=== PATIENT | male | born 1970 | race Caucasian/White ===

== ENCOUNTER 2018-04-29 16:01 | Outpatient (REF) | payer MEDICARE, MEDICAID, SELFPAY | END 2018-04-29 16:21 | LOC: NCHCN 16:01 | PROVIDERS: PCP Family Medicine; Visit Provider Nurse Practitioner Family | DX: L03.114 Cellulitis of left upper limb (principal) | CPT/HCPCS: 87077; 87070; 87186; 87205 ==

== ENCOUNTER 2018-05-01 09:55 | Outpatient (CLI) | payer MEDICARE, MEDICAID, SELFPAY ==
[2018-05-01 11:13] LABS: Uric Acid 8.2 mg/dL (3.5-7.2)
== END 2018-05-01 10:15 ==
PROVIDERS: PCP Family Medicine; Visit Provider Family Medicine
DX: M1A.0790 Idiopathic chronic gout, unspecified ankle and foot, without tophus (tophi) (principal)
CPT/HCPCS: 36415; 84550

== ENCOUNTER 2018-05-03 17:50 | Emergency (ER) | payer MEDICARE, MEDICAID, SELFPAY ==
[2018-05-03 17:59] VITALS: BP 136/97; PULSE 103; RESP 16; TEMP 36.4; O2SAT 93
--- NOTE | 2018-05-03 18:23 | W.ED.GENAD ---
Discharge Plan Disposition Patient Disposition: HOME Condition: Good Discharge Details Chief Complaint: Cellulitis Clinical Impression: Abscess of forearm, left Primary Care Provider: Marry Nicholson ED Provider: Refugio Ryder Home Meds and New Rx's Prescriptions: Continue fluticasone-salmeterol [Advair Diskus] 1 EACH blister with device 1 ea Inhalation DAILY RF: 0 albuterol sulfate 8.5 GM HFA aerosol inhaler 8.5 gm Inhalation PRN RF: 0 sulfamethoxazole-trimethoprim [Bactrim DS] 800-160 mg Tablet 1 tab PO BID RF: 0 loratadine 10 mg Tablet 10 mg PO DAILY RF: 0 Discharge Instructions Instructions: Abscess (ED) Additional Instructions: if you have fevers or severe worsening of pain return to the emergency department soak the wound three times a day follow up as scheduled with your primary care provider on Saturday Discharge Data Discharge Physician: Refugio Ryder Medical Decision Making pt states that last Saturday he scratched his left forearm while doing work with a yard tool He developed a cellulitis per pt and was placed on bactrim which he has been on Since . He came in [facility] for drainage. It apperas he has an abscess that is drianing. I removed solid pus material and more came out and then probed the wound with landon's and loculations broken up, no need to extend the lesion further. N ofevers and appears well and no crepitus so doubt sepis or nec fasc. will have him continue with po abx, has f/u saturday with pcp. Return precautions given Differential Diagnosis abscess, cellulitis HPI General Mode of arrival: ambulatory. Date/Time Provider Initiated Documentation: 05/03/18 18:03. Limitations to Documentation: no limitations. Information obtained by: patient. History of Present Illness 47 year old M presents to the emergency department with the chief complaint of left arm lesion, described as moderate, with intensity rated at 3. Quality is described as burning, and is localized to the left and upper extremity. Patient reports no radiation. Patient started experiencing this day(s) (3) and it has been constant. No relieving factors improve symptom(s), No exacerbating factors reported . Related Data Home Medications Medication Instructions Recorded Confirmed albuterol sulfate 8.5 gm INHALATION PRN 11/23/13 05/03/18 fluticasone-salmeterol [Advair 1 ea INHALATION DAILY 11/23/13 05/03/18 Diskus] loratadine 10 mg PO DAILY 05/03/18 05/03/18 sulfamethoxazole-trimethoprim 1 tab PO BID 05/03/18 05/03/18 [Bactrim DS] Allergies Allergy/AdvReac Type Severity Reaction Status Date / Time No Known Allergies Allergy Unverified 05/03/18 18:04 General Stated Complaint: Cellulitis JEREMI: 4 Review of Systems Review of Systems All systems reviewed & are unremarkable except as noted in HPI and below Constitutional Denies chills, Denies fever(s) and Denies weakness Eyes Denies loss of vision ENT Denies change in voice Cardiovascular Denies chest pain and Denies dyspnea Respiratory Denies dyspnea Gastrointestinal Denies abdominal pain, Denies nausea and Denies vomiting Genitourinary Denies dysuria Musculoskeletal Denies joint swelling Neurologic Denies loss of vision and Denies weakness Psychiatric Denies depression Endocrine Denies cold intolerance and Denies heat intolerance Allergic/Immunologic Denies urticaria PFSH Social History Smoking/Tobacco Use Status: Former Tobacco Use Exam Const General: no acute distress Orientation: alert HENMT Head: normal to inspection Ears: external ears normal General nose exam: external nose normal Mouth: moist mucous membranes Eyes General: appearance normal, both eyes and all related structures Neck Neck: normal visual inspection Resp Effort & Inspection: normal respiratory effort and able to speak in complete sentences Cardio Rate: regular rate Skin General skin exam: other (on posterior forearm has 2cm open wound with pus draining and 3cm surrounding erythema without crepitus or severe pain) Neuro General: alert and oriented x3 Extrem General: full ROM and normal capillary refill Psych Mental Status: mental status grossly normal Course Vital Signs Temperature 36.4 C L 05/03/18 17:59 Pulse 103 H 05/03/18 17:59 Respiratory Rate 16 05/03/18 17:59 Blood Pressure 136/97 H 05/03/18 17:59 Pulse Oximetry 93 L 05/03/18 17:59 Temperature 36.4 C L 05/03/18 17:59 Pulse 103 H 05/03/18 17:59 Respiratory Rate 16 05/03/18 17:59 Respiratory Effort Non-Labored 05/03/18 18:02 Blood Pressure 136/97 H 05/03/18 17:59 Pulse Oximetry 93 L 05/03/18 17:59 Pain Level 4 05/03/18 17:59
--- NOTE | 2018-05-03 18:27 | ED.GENADUL_ITS ---
Discharge Plan Disposition Patient Disposition: HOME Condition: Good Discharge Details Chief Complaint: Cellulitis Clinical Impression: Abscess of forearm, left Primary Care Provider: Marry Nicholson ED Provider: Refugio Ryder Home Meds and New Rx's Prescriptions: Continue fluticasone-salmeterol [Advair Diskus] 1 EACH blister with device 1 ea Inhalation DAILY RF: 0 albuterol sulfate 8.5 GM HFA aerosol inhaler 8.5 gm Inhalation PRN RF: 0 sulfamethoxazole-trimethoprim [Bactrim DS] 800-160 mg Tablet 1 tab PO BID RF: 0 loratadine 10 mg Tablet 10 mg PO DAILY RF: 0 Discharge Instructions Instructions: Abscess (ED) Additional Instructions: if you have fevers or severe worsening of pain return to the emergency department soak the wound three times a day follow up as scheduled with your primary care provider on Saturday Discharge Data Discharge Physician: Refugio Ryder Medical Decision Making pt states that last Saturday he scratched his left forearm while doing work with a yard tool He developed a cellulitis per pt and was placed on bactrim which he has been on Since . He came in [facility] for [facility]. It apperas he has an abscess that is drianing. I removed solid pus material and more came out and then probed the wound with landon's and loculations broken up, no need to extend the lesion further. N ofevers and appears well and no crepitus so doubt sepis or nec fasc. will have him continue with po abx, has f/u saturday with pcp. Return precautions given Differential Diagnosis abscess, cellulitis HPI General Mode of arrival: ambulatory . Date/Time Provider Initiated Documentation: 05/03/18 18:03 . Limitations to Documentation: no limitations . Information obtained by: patient . History of Present Illness 47 year old M presents to the emergency department with the chief complaint of left arm lesion, described as moderate, with intensity rated at 3. Quality is described as burning, and is localized to the left and upper extremity. Patient reports no radiation. Patient started experiencing this day(s) (3) and it has been constant. No relieving factors improve symptom(s) , No exacerbating factors reported . Related Data Home Medications Medication Instructions Recorded Confirmed albuterol sulfate 8.5 gm INHALATION PRN 11/23/13 05/03/18 fluticasone-salmeterol [Advair 1 ea INHALATION DAILY 11/23/13 05/03/18 Diskus] loratadine 10 mg PO DAILY 05/03/18 05/03/18 sulfamethoxazole-trimethoprim 1 tab PO BID 05/03/18 05/03/18 [Bactrim DS] Allergies Allergy/AdvReac Type Severity Reaction Status Date / Time No Known Allergies Allergy Unverified 05/03/18 18:04 General Stated Complaint: Cellulitis JEREMI: 4 Review of Systems Review of Systems All systems reviewed & are unremarkable except as noted in HPI and below Constitutional Denies chills, Denies fever(s) and Denies weakness Eyes Denies loss of vision ENT Denies change in voice Cardiovascular Denies chest pain and Denies dyspnea Respiratory Denies dyspnea Gastrointestinal Denies abdominal pain, Denies nausea and Denies vomiting Genitourinary Denies dysuria Musculoskeletal Denies joint swelling Neurologic Denies loss of vision and Denies weakness Psychiatric Denies depression Endocrine Denies cold intolerance and Denies heat intolerance Allergic/Immunologic Denies urticaria PFSH Social History Smoking/Tobacco Use Status: Former Tobacco Use Exam Const General: no acute distress Orientation: alert HENMT Head: normal to inspection Ears: external ears normal General nose exam: external nose normal Mouth: moist mucous membranes Eyes General: appearance normal, both eyes and all related structures Neck Neck: normal visual inspection Resp Effort & Inspection: normal respiratory effort and able to speak in complete sentences Cardio Rate: regular rate Skin General skin exam: other (on posterior forearm has 2cm open wound with pus draining and 3cm surrounding erythema without crepitus or severe pain) Neuro General: alert and oriented x3 Extrem General: full ROM and normal capillary refill Psych Mental Status: mental status grossly normal Course Vital Signs Temperature 36.4 C L 05/03/18 17:59 Pulse 103 H 05/03/18 17:59 Respiratory Rate 16 05/03/18 17:59 Blood Pressure 136/97 H 05/03/18 17:59 Pulse Oximetry 93 L 05/03/18 17:59 Temperature 36.4 C L 05/03/18 17:59 Pulse 103 H 05/03/18 17:59 Respiratory Rate 16 05/03/18 17:59 Respiratory Effort Non-Labored 05/03/18 18:02 Blood Pressure 136/97 H 05/03/18 17:59 Pulse Oximetry 93 L 05/03/18 17:59 Pain Level 4 05/03/18 17:59
== END 2018-05-03 18:35 | disposition home or self-care (01) ==
LOC: ER 18:41
PROVIDERS: Emergency Provider Emergency Medicine; PCP Family Medicine
DX: L02.414 Cutaneous abscess of left upper limb (principal); W27.1XXA Contact with garden tool, initial encounter
CPT/HCPCS: 10060

== ENCOUNTER 2019-01-02 06:52 | Outpatient (CLI) | payer MEDICARE, MEDICAID, SELFPAY ==
--- NOTE | 2019-01-02 07:35 | MERGE_ITS ---
*[facility]* *[facility]* [address] [place] [address] Date of study: 01/02/2019 Transthoracic Echocardiography M-mode, complete 2D, complete spectral Doppler, and color Doppler *STUDY CONCLUSIONS* Summary: 1. Left ventricle: The cavity size was normal. Systolic function was normal. The estimated ejection fraction was 55-60%. Diastolic parameters were normal. There was no evidence of elevated ventricular filling pressure by Doppler parameters. 2. Mitral valve: There was mild regurgitation. 3. Right ventricle: The cavity size was normal. Wall thickness was normal. Systolic function was normal. 4. Atrial septum: No defect or patent foramen ovale was identified. 5. Pulmonary arteries: Pulmonary systolic pressure was in the range of 20mm Hg to 30mm Hg. 6. Inferior vena cava: The vessel was normal in size. The respirophasic diameter changes were in the normal range (greater than or equal to 50%), consistent with normal central venous pressure. *PATIENT PRESENTATION* Height: 170.2cm ((67in) ) S/D Pressure: 131 / 84 Weight: 106.6kg ((234.5lb) ) BSA: 2.29m^2 Test start time: 07:30 AM. Test stop time: 08:15 AM. ORDERING Marry Nicholson REFERRING Marry Nicholosn PERFORMING Unknown PERFORMING [facility] [employer]AU[employer] CONTR[employer]ER Devi Dyson *PROCEDURE DATA* Procedure information: This study was interpreted by [facility]. Pertinent images and digital data are archived for permanent storage and are available for subsequent review. No prior study was available for comparison. Study status: Routine. Transthoracic echocardiography. M-mode, complete 2D, complete spectral Doppler, and color Doppler. A Transthoracic Echocardiogram was performed. Scanning was performed from the parasternal, apical, subcostal, and suprasternal notch acoustic windows. Images were obtained using an [employer] SC 2000 cardiac ultrasound machine. Image quality was good. Study completion: The patient tolerated the procedure well. History: PMH: Dyspnea on Exertion. *CARDIAC ANATOMY* Left ventricle: The cavity size was normal. Systolic function was normal. The estimated ejection fraction was 55-60%. The tissue Doppler parameters were normal. Diastolic parameters were normal. There was no evidence of elevated ventricular filling pressure by Doppler parameters. Aortic valve: Trileaflet. Doppler: There was no stenosis. There was no regurgitation. VTI ratio of LVOT to aortic valve: 0.86. Valve area (VTI): 2.5cm^2. Indexed valve area (VTI): 1.1cm^2/m^2. Peak velocity ratio of LVOT to aortic valve: 0.8. Valve area (Vmax): 2.3cm^2. Indexed valve area (Vmax): 1cm^2/m^2. Mean velocity ratio of LVOT to aortic valve: 0.74. Valve area (Vmean): 2.1cm^2. Indexed valve area (Vmean): 0.9cm^2/m^2. Mean gradient (S): 4.1mm Hg. Peak gradient (S): 8.3mm Hg. Aorta: Aortic root: The aortic root was normal in size. Ascending aorta: The ascending aorta was normal in size. Mitral valve: Doppler: There was no evidence for stenosis. There was mild regurgitation. Valve area by pressure half-time: 4.3cm^2. Indexed valve area by pressure half-time: 1.9cm^2/m^2. Peak gradient (D): 2.7mm Hg. Left atrium: The atrium was normal in size. Atrial septum: No defect or patent foramen ovale was identified. Right ventricle: The cavity size was normal. Wall thickness was normal. Systolic function was normal. Pulmonic valve: Doppler: There was no evidence for stenosis. There was no significant regurgitation. Peak gradient (S): 3.4mm Hg. Tricuspid valve: Doppler: There was mild regurgitation. Pulmonary artery: Poorly visualized. Pulmonary systolic pressure was in the range of 20mm Hg to 30mm Hg. Right atrium: The atrium was normal in size. Pericardium: There was no pericardial effusion. Systemic veins: Inferior vena cava: The vessel was normal in size. The respirophasic diameter changes were in the normal range (greater than or equal to 50%), consistent with normal central venous pressure. Measurements Left ventricle Value Reference LV ID, ED, PLAX 5.1 cm 3.5 - 6.0 LV ID, ES, PLAX 3.7 cm 2.1 - 4.0 LV PW thickness, ED, PLAX 1.0 cm LV end-diastolic volume, 1-p A2C 121 ml LV ejection fraction, 1-p A2C 52 % LV end-diastolic volume, 1-p A4C 111 ml LV ejection fraction, 1-p A4C 51 % LV e', lateral 0.132 m/sec LV E/e', lateral 6 LV e', medial 0.088 m/sec LV E/e', medial 9 LV e', average 0.11 m/sec LV E/e', average 8 Ventricular septum Value Reference IVS thickness, ED, PLAX 1.0 cm LVOT Value Reference LVOT ID, A-P 1.9 cm LVOT area 2.9 cm^2 LVOT peak velocity, S 1.14 m/sec LVOT mean velocity, S 0.71 m/sec LVOT VTI, S 22.4 cm LVOT peak gradient, S 5.2 mm Hg LVOT mean gradient, S 2.4 mm Hg Stroke volume (SV), LVOT DP 64 ml Stroke index (SV/bsa), LVOT DP 28 ml/m^2 Aortic valve Value Reference Aortic valve peak velocity, S 1.4 m/sec Aortic valve mean velocity, S 0.95 m/sec Aortic valve VTI, S 26.0 cm Aortic mean gradient, S 4.1 mm Hg Aortic peak gradient, S 8.3 mm Hg VTI ratio, LVOT/AV 0.86 Aortic valve area, VTI 2.5 cm^2 Velocity ratio, peak, LVOT/AV 0.8 Aortic valve area, peak velocity 2.3 cm^2 Velocity ratio, mean, LVOT/AV 0.74 Aortic valve area, mean velocity 2.1 cm^2 Aortic valve area/bsa, mean velocity 0.9 cm^2/m^2 Aorta Value Reference Aortic root ID, ED 3.4 cm Ascending aorta ID, A-P, S 2.9 cm Left atrium Value Reference LA ID, A-P, ES 3.9 cm LA ID/bsa, A-P 1.7 cm/m^2 <=2.2 LA area, ES, A4C 15.9 cm^2 8.8 - 23.4 LA area, ES, A2C 16 cm^2 LA volume/bsa, S 21 ml/m^2 LA volume, ES, 2-p 43 ml LA volume/bsa, ES, 2-p 19 ml/m^2 LA/aortic root ratio 1.16 Mitral valve Value Reference Mitral E-wave peak velocity 0.83 m/sec Mitral A-wave peak velocity 0.66 m/sec Mitral deceleration time 175 ms 150 - 230 Mitral pressure half-time 51 ms Mitral peak gradient, D 2.7 mm Hg Mitral E/A ratio, peak 1.26 Mitral valve area, PHT, DP 4.3 cm^2 Tricuspid valve Value Reference Tricuspid regurg peak velocity 2.3 m/sec Tricuspid peak RV-RA gradient 21.3 mm Hg Right atrium Value Reference RA area, ES, A4C 15.3 cm^2 8.3 - 19.5 Pulmonic valve Value Reference Pulmonic peak gradient, S 3.4 mm Hg Legend: (L) and (H) babs values outside specified reference range. I have personally reviewed the images and have reviewed and edited the reported findings. Electronically signed by Refugio Cruz MD 01/02/2019 19:02
== END 2019-01-02 07:12 ==
PROVIDERS: PCP Family Medicine; Visit Provider Family Medicine
DX: R06.09 Other forms of dyspnea (principal); I34.0 Nonrheumatic mitral (valve) insufficiency
CPT/HCPCS: 93306

== ENCOUNTER 2019-07-24 10:53 | Outpatient (REF) | payer MEDICARE, MEDICAID, SELFPAY ==
[2019-07-24 13:03] LABS: Anion Gap 8.3 mmol/L (3-11); BUN 15 mg/dL (7-18); CO2 30.7 mmol/L (21.0-32.0); Calcium 9.5 mg/dL (8.5-10.1); Chloride 103 mmol/L (98-107); Glucose 72 mg/dL (74-106); Potassium 4.2 mmol/L (3.5-5.1); Sodium 142 mmol/L (136-145)
== END 2019-07-24 11:13 ==
LOC: NCHCN 10:53
PROVIDERS: PCP Family Medicine; Visit Provider Family Medicine
DX: M1A.0790 Idiopathic chronic gout, unspecified ankle and foot, without tophus (tophi) (principal); E66.9 Obesity, unspecified
CPT/HCPCS: 80048; 84550

== ENCOUNTER 2019-10-15 09:13 | Outpatient (CLI) | payer MEDICARE, MEDICAID, SELFPAY ==
[2019-10-18 02:52] LABS: SARS-CoV-2 RNA Undetected (Undetected); SARS-CoV-2 Specimen Source Nasopharynx
== END 2019-10-15 09:33 ==
PROVIDERS: PCP Family Medicine; Visit Provider Family Medicine
DX: R05 Cough (principal)
CPT/HCPCS: U0003

== ENCOUNTER 2019-10-19 12:11 | Outpatient (CLI) | payer MEDICARE, MEDICAID, SELFPAY ==
--- NOTE | 2019-10-19 | DI.RAD_ITS ---
EXAM: XR CHEST 2V PA LATERAL CLINICAL HISTORY: R05 COUGH, PNEUMONIA TECHNIQUE: 2D digital imaging was performed. COMPARISON: No exams were available for comparison FINDINGS: MEDIASTINUM: Normal. HEART: Normal. PULMONARY VASCULATURE: Normal. LUNGS: Clear. PLEURAL SPACE: No pleural effusion or pneumothorax. BONE:Normal. OTHER FINDINGS:Normal. IMPRESSION: No acute pulmonary findings. DATA REPOSITORY: RADIATION DOSE DELIVERED:
== END 2019-10-19 12:31 ==
PROVIDERS: PCP Family Medicine; Visit Provider Nurse Practitioner Family
DX: R05 Cough (principal)
CPT/HCPCS: 71046

== ENCOUNTER 2020-03-03 20:44 | Outpatient (REF) | payer MEDICARE, MEDICAID, SELFPAY | END 2020-03-03 21:04 | LOC: NCHCN 20:44 | PROVIDERS: PCP Family Medicine; Visit Provider Family Medicine | DX: L02.414 Cutaneous abscess of left upper limb (principal) | CPT/HCPCS: 87077; 87070; 87186; 87205 ==

== ENCOUNTER 2020-03-17 01:13 | Outpatient (CLI) | payer MEDICARE, MEDICAID, SELFPAY ==
--- NOTE | 2020-03-17 | DI.RAD_ITS ---
EXAM: XR ANKLE LT COMPLETE CLINICAL HISTORY: GOUT, M10.9 TECHNIQUE: 2D digital imaging was performed. COMPARISON: No exams were available for comparison FINDINGS: BONES: No acute fracture is present. No bony destructive lesion is seen. Small plantar calcaneal spur . JOINTS:The ankle mortise is normally aligned. SOFT TISSUE: Normal. IMPRESSION: Unremarkable radiographs of the left ankle. DATA REPOSITORY: RADIATION DOSE DELIVERED:
== END 2020-03-17 01:33 ==
PROVIDERS: PCP Family Medicine; Visit Provider Family Medicine
DX: M10.9 Gout, unspecified (principal)
CPT/HCPCS: 73610

== ENCOUNTER 2020-10-21 13:06 | Outpatient (REF) | payer MEDICARE, MEDICAID, SELFPAY ==
[2020-10-21 15:08] LABS: Uric Acid 7.4 mg/dL (3.5-7.2)
== END 2020-10-21 13:07 | disposition home or self-care (01) ==
LOC: NCHCN 13:06
PROVIDERS: PCP Family Medicine; Visit Provider Family Medicine
DX: M10.9 Gout, unspecified (principal)
CPT/HCPCS: 84550

== ENCOUNTER 2021-01-21 18:04 | Emergency (ER) | payer MEDICARE, MEDICAID, SELFPAY ==
[2021-01-21 18:14] VITALS: BP 150/98; PULSE 93; RESP 18; TEMP 36.7; O2SAT 96
--- NOTE | 2021-01-21 18:51 | ED.GENADUL_ITS ---
Discharge Plan Disposition Patient Disposition: HOME Condition: Good Discharge Details Clinical Impression: Accidental insect sting Primary Care Provider: Marry Nicholson ED Provider: Amberly Sparks Home Meds and New Rx's Prescriptions: New cephalexin 500 mg capsule 500 mg PO Q6H Qty: 28 RF: 0 Saccharomyces boulardii [Florastor] 250 mg capsule 250 mg PO BID Qty: 14 RF: 0 prednisone 20 mg tablet 40 mg PO BID Qty: 10 RF: 0 diphenhydramine HCl [Benadryl] 25 mg capsule 25 mg PO Q6H PRNQty: 20 RF: 0 No Action albuterol sulfate 8.5 GM HFA aerosol inhaler 8.5 gm Inhalation PRN RF: 0 loratadine 10 mg Tablet 10 mg PO DAILY RF: 0 montelukast 10 mg tablet 10 mg PO DAILY RF: 0 budesonide-formoterol [Symbicort] 160-4.5 mcg/actuation HFA aerosol inhaler 1 inh INHALATION DAILY RF: 0 Medical Decision Making I believe this patient was stung by an insect, however difficult to tell if this is infectious so I did place the patient on 7 days of Keflex in addition to prednisone and Benadryl Given low threshold to return should he have new or worsening complaints in 48- hour recheck recommended He appears well, his blood pressure is elevated he is instructed to have this rechecked by his doctor He is given the first dose of Keflex, Benadryl, and prednisone at time of discharge Return precautions discussed and patient expressed understanding Medical Records Medical records reviewed: Yes I reviewed the patient's medical records. HPI General Mode of arrival: ambulatory . Date/Time Provider Initiated Documentation: 01/21/21 18:19 . Limitations to Documentation: no limitations . Information obtained by: patient . HPI Narrative: This 50-year-old gentleman presents with redness to left wrist. Patient states he reached behind to pull monitor and when he removed his hand she felt a stinging sensation. When he went into the house he noticed some redness. This morning he woke and noticed that the redness had spread. Is been taking ibuprofen for the redness. He denies any difficulty swallowing, chest pain, shortness of breath. He denies any fever or chills. He denies any history of anaphylaxis. He has not attempted Benadryl. He does state he had a cellulitis to his right lower extremity history of the Keflex over a month ago. Related Data Home Medications Medication Instructions Recorded Confirmed albuterol sulfate 8.5 gm INHALATION PRN 11/23/13 01/21/21 loratadine 10 mg PO DAILY 05/03/18 01/21/21 Saccharomyces boulardii [Florastor] 250 mg PO BID #14 cap 01/21/21 budesonide-formoterol [Symbicort] 1 inh INHALATION DAILY 01/21/21 01/21/21 cephalexin 500 mg PO Q6H #28 cap 01/21/21 diphenhydramine HCl [Benadryl] 25 mg PO Q6H PRN #20 cap 01/21/21 montelukast 10 mg PO DAILY 01/21/21 01/21/21 prednisone 40 mg PO BID #10 tab 01/21/21 Previous Rx's Medication Instructions Recorded Saccharomyces boulardii [Florastor] 250 mg PO BID #14 cap 01/21/21 cephalexin 500 mg PO Q6H #28 cap 01/21/21 diphenhydramine HCl [Benadryl] 25 mg PO Q6H PRN #20 cap 01/21/21 prednisone 40 mg PO BID #10 tab 01/21/21 Allergies Allergy/AdvReac Type Severity Reaction Status Date / Time No Known Allergies Allergy Unverified 05/03/18 18:04 General Stated Complaint: Cellulitis JEREMI: 3 Review of Systems All systems reviewed & are unremarkable except as noted in HPI and below PFSH Social History Smoking/Tobacco Use Status: Former Tobacco Use Smoking risk assessment performed?: Yes Alcohol Intake: never Drug use: Never Do you feel safe at home: Yes Do you feel safe in your relationship?: Yes Exam Const General: cooperative and comfortable Neck Other: No stridor Resp Effort & Inspection: normal respiratory effort Cardio Rate: regular rate Skin Full body images: 1. Erythema noted, central area that is papular and erythematous with vesicles, no crepitus, no induration, no purulent drainage Neuro General: patient alert and patient oriented x3 Course Vital Signs Vital signs: Vital Signs Temperature 36.7 C 01/21/21 18:14 Pulse 93 H 01/21/21 18:14 Respiratory Rate 18 01/21/21 18:14 Blood Pressure 150/98 H 01/21/21 18:14 Pulse Oximetry 96 01/21/21 18:14 Temperature 36.7 C 01/21/21 18:14 Temperature Source Temporal Artery Scan 01/21/21 18:14 Pulse 93 H 01/21/21 18:14 Respiratory Rate 18 01/21/21 18:14 Respiratory Effort Non-Labored 01/21/21 18:19 Blood Pressure 150/98 H 01/21/21 18:14 Blood Pressure Position Sitting 01/21/21 18:14 Pulse Oximetry 96 01/21/21 18:14 Oxygen Delivery Method Room Air 01/21/21 18:14 Oxygen Flow Rate 0 01/21/21 18:14 Pain Level 5 01/21/21 18:14
[2021-01-21] MEDS: Cephalexin 500 MG CAP PO (19:24)
[2021-01-21] MEDS: predniSONE 20 MG TAB 40 MG PO (19:25)
[2021-01-21] MEDS: diphenhydrAMINE 25 MG CAP PO (19:25)
[2021-01-21 19:28] VITALS: BP 150/98; PULSE 93; RESP 18; O2SAT 96
== END 2021-01-21 19:25 | disposition home or self-care (01) ==
PROVIDERS: Emergency Provider Physician Assistant; PCP Family Medicine
DX: S60.862A Insect bite (nonvenomous) of left wrist, initial encounter (principal); W57.XXXA Bitten or stung by nonvenomous insect and other nonvenomous arthropods, initial encounter
CPT/HCPCS: 99283; J7512

== ENCOUNTER 2021-02-15 20:33 | Outpatient (REF) | payer MEDICARE, MEDICAID, SELFPAY ==
[2021-02-16 12:26] LABS: COVID-19 RT-PCR UVMMC Result Negative (Negative)
== END 2021-02-15 20:34 | disposition home or self-care (01) ==
LOC: NCHCN 20:33
PROVIDERS: PCP Family Medicine; Visit Provider Family Medicine
DX: Z20.822 Contact with and (suspected) exposure to COVID-19 (principal); R05 Cough
CPT/HCPCS: U0003; U0005

== ENCOUNTER 2021-04-19 10:39 | Outpatient (REF) | payer MEDICARE, MEDICAID, SELFPAY | END 2021-04-19 10:40 | disposition home or self-care (01) | LOC: NCHCN 10:39 | PROVIDERS: PCP Family Medicine; Visit Provider Family Medicine | DX: L02.411 Cutaneous abscess of right axilla (principal) | CPT/HCPCS: 87077; 87070; 87186; 87205 ==

== ENCOUNTER → 2021-04-27 12:46 | Outpatient (BNVA) | payer MEDICARE, MEDICAID, SELFPAY | PROVIDERS: PCP Family Medicine; Referring Provider Family Medicine; Visit Provider Physical Therapy Assistant | DX: L02.91 Cutaneous abscess, unspecified (principal); Z22.322 Carrier or suspected carrier of Methicillin resistant Staphylococcus aureus; Z98.890 Other specified postprocedural states | CPT/HCPCS: 99213 ==

== ENCOUNTER 2021-08-30 12:07 | Outpatient (CLI) | payer MEDICARE, MEDICAID, SELFPAY ==
--- NOTE | 2021-08-30 11:00 | DI.RAD_ITS ---
Exam(s) XR KNEE LT 3V AP,LAT,AUSTYN EXAM: XR KNEE LT 3V AP,LAT,AUSTYN CLINICAL HISTORY: left knee pain. TECHNIQUE: 2D digital imaging was performed of the left knee. Three images were obtained. AP, AP t unnel and lateral views were obtained. COMPARISON: No previous for comparison. FINDINGS: BONES: No acute fracture is present. No bony destructive lesion is seen. JOINTS: The knee is normally aligned. No joint effusion is seen. SOFT TISSUE: Normal. IMPRESSION: Normal radiographs of the left knee. DATA REPOSITORY: RADIATION DOSE DELIVERED:
== END 2021-08-30 12:08 | disposition home or self-care (01) ==
LOC: DIORS 12:08
PROVIDERS: PCP Family Medicine; Referring Provider Family Medicine; Visit Provider Physician Assistant
DX: M25.562 Pain in left knee (principal); M23.92 Unspecified internal derangement of left knee
CPT/HCPCS: 73562; 99214

== ENCOUNTER 2021-09-04 19:31 | Outpatient (REF) | payer MEDICARE, MEDICAID, SELFPAY ==
[2021-09-05 10:12] LABS: Cyclic Citrullinated Peptide <2.5 U/mL (<5.0)
[2021-09-05 14:31] LABS: ANA Interpretation Negative (Negative)
== END 2021-09-04 19:32 | disposition home or self-care (01) ==
LOC: NCHCN 19:31
PROVIDERS: PCP Family Medicine; Visit Provider Family Medicine
DX: M25.462 Effusion, left knee (principal)
CPT/HCPCS: 86200; 86038

== ENCOUNTER → 2022-01-08 09:47 | Outpatient (BNVA) | payer MEDICARE, MEDICAID, SELFPAY | PROVIDERS: PCP Family Medicine; Referring Provider Family Medicine; Visit Provider Student in an Organized Health Care Education/Training Program | DX: M23.92 Unspecified internal derangement of left knee (principal) | CPT/HCPCS: 99214 ==

== ENCOUNTER 2022-01-16 02:54 | Outpatient (CLI) | payer MEDICARE, MEDICAID, SELFPAY ==
[2022-01-16 11:24] LABS: Source Nasal/Nares
[2022-01-16 16:45] LABS: COVID-19 PCR Negative (Negative)
== END 2022-01-16 02:55 | disposition home or self-care (01) ==
LOC: LBO 02:55
PROVIDERS: PCP Family Medicine; Visit Provider Student in an Organized Health Care Education/Training Program
DX: Z20.822 Contact with and (suspected) exposure to COVID-19 (principal); Z01.818 Encounter for other preprocedural examination
CPT/HCPCS: 87635

== ENCOUNTER 2022-01-17 07:06 | Day surgery (SDC) | payer MEDICARE, MEDICAID, SELFPAY ==
[2022-01-17] VITALS (10 sets, daily range): BP systolic 110–153; BP diastolic 65–101; PULSE 67–82; RESP 10–20; TEMP 36.4–36.6; O2SAT 95–97; BMI 40.0
--- NOTE | 2022-01-17 07:23 | W.PM.DSUDISC ---
Discharge Plan Disposition Patient Disposition: HOME Condition: Good Discharge Details Reason For Visit: Left Knee Arthroscopy Attending Provider: Jimy Dodson Primary Care Provider: Marry Nicholson Home Meds and New Rx's Prescriptions: New ibuprofen 600 mg tablet 600 mg PO TID Qty: 30 0RF acetaminophen 500 mg capsule 1,000 mg PO Q8H PRN PRNQty: 30 0RF hydrocodone-acetaminophen 5-325 mg tablet 1 tab PO Q6H PRNQty: 5 0RF Continued mupirocin 2 % ointment 1 applic topical BID Incruse Ellipta 62.5 mcg/actuation blister with device 1 inh inhalation DAILY rizatriptan 10 mg tablet 10 mg PO ONCE Rx Instructions: may repeat once after at least 2 hours ipratropium-albuterol 0.5 mg-3 mg(2.5 mg base)/3 mL solution for nebulization 3 ml inhalation Q4H PRN albuterol sulfate [Ventolin HFA] 90 mcg/actuation HFA aerosol inhaler 2 puff inhalation Q6H PRN aspirin [Adult Aspirin Regimen] 81 mg tablet,delayed release (DR/EC) 81 mg PO DAILY ibuprofen 600 mg tablet 600 mg PO BID PRN albuterol sulfate 8.5 GM HFA aerosol inhaler 8.5 g Inhalation PRN loratadine 10 mg Tablet 10 mg PO DAILY montelukast 10 mg tablet 10 mg PO DAILY Label Comments: TAKE 1 TABLET BY MOUTH EVERY DAY budesonide-formoterol [Symbicort] 160-4.5 mcg/actuation HFA aerosol inhaler 1 inh INHALATION DAILY Label Comments: INHALE 2 PUFFS BY MOUTH TWICE DAILY Discharge Instructions Stand Alone Forms: [facility] Referrals: Jimy Dodson MD [ [facility] STAFF PHYSICIAN] - Equipment/Supplies: Partial Weight Bearing Crutches Activity:: Activity as Tolerated Remove Dressings/Wound Care:: 72 hours Shower/Bathe:: 72 hours Diet:: As Tolerated Discharge Orders Discharge Orders: Discharge Order (Routine); Ordered 01/17/22 Ordered By: Kori Cantu DS: Diagnosis Discharge Diagnosis (1) Internal derangement of left knee: Status: Acute
[2022-01-17] MEDS: Lactated Ringers 1,000 ML 80 ML IV (07:44)
--- NOTE | 2022-01-17 10:04 | W.ANESPRE ---
General Info Date of Service Date Performed: 01/17/22 Height: 5 ft 7 in Weight: 116 kg Body Mass Index (BMI): 40.0 Surgical Procedure: Operation Date: 01/17/22 09:55 Proposed Procedure Side Surgeon p Knee Arthroscopy Diagnostic Left Jimy Dodson MD Meds Allergies and Home Medications Allergies Allergy/AdvReac Type Severity Reaction Status Date / Time No Known Allergies Allergy Unverified 01/17/22 07:23 Home Medication Medication Instructions Recorded albuterol sulfate 90 mcg/actuation 8.5 g inhalation PRN 11/23/13 aerosol inhaler loratadine 10 mg tablet 10 mg PO DAILY 05/03/18 budesonide-formoterol HFA 160 1 inh inhalation DAILY 01/21/21 mcg-4.5 mcg/actuation aerosol inhaler (Symbicort) montelukast 10 mg tablet 10 mg PO DAILY 01/21/21 albuterol sulfate 90 mcg/actuation 2 puff inhalation Q6H PRN 04/25/21 aerosol inhaler (Ventolin HFA) aspirin 81 mg tablet,delayed 81 mg PO DAILY 04/25/21 release (Adult Aspirin Regimen) ibuprofen 600 mg tablet 600 mg PO BID PRN 04/25/21 ipratropium 0.5 mg-albuterol 3 mg 3 ml inhalation Q4H PRN 04/25/21 (2.5 mg base)/3 mL nebulization soln mupirocin 2 % topical ointment 1 applic topical BID 04/25/21 rizatriptan 10 mg tablet 10 mg PO ONCE 04/25/21 umeclidinium 62.5 mcg/actuation 1 inh inhalation DAILY 04/25/21 blister powder for inhalation (Incruse Ellipta) acetaminophen 500 mg capsule 1,000 mg PO Q8H PRN PRN #30 caps 01/17/22 hydrocodone 5 mg-acetaminophen 325 1 tab PO Q6H PRN #5 tabs 01/17/22 mg tablet ibuprofen 600 mg tablet 600 mg PO TID #30 tabs 01/17/22 Current Visit Medications: Current Medications Generic Name Dose Route Start Last Admin Trade Name Freq PRN Reason Stop Dose Admin Acetaminophen 650 mg 01/17/22 07:21 Acetaminophen 325 Mg Tab PO Q4H PRN PRN Ringer's Solution 1,000 mls @ 80 mls/hr 01/17/22 06:00 01/17/22 07:44 IV 02/15/22 23:59 80 mls/hr INFUSION DIMITRY Administration Cefazolin Sodium 3,000 mg/ 100 mls @ 200 mls/hr 01/17/22 06:00 Sodium Chloride IVPB 01/17/22 23:59 PREOP DIMITRY Ondansetron HCl 4 mg/ Sodium 52 mls @ 200 mls/hr 01/17/22 07:21 Chloride IVPB Q6H PRN PRN IV Miscellaneous Supplies 1 each 01/17/22 06:00 Iv Access IV 02/15/22 23:59 DIRECTED DIMITRY Oxycodone HCl 5 mg 01/17/22 07:21 Oxycodone 5 Mg Tab PO Q3H PRN PRN Pain Sodium Chloride 0 ml 01/17/22 06:00 Normal Saline Flush 10 Ml Syr IV 02/15/22 23:59 PRN PRN Sodium Chloride 0 ml 01/17/22 06:00 Normal Saline 10 Ml Vial IJ 02/15/22 23:59 DIRECTED PRN Sterile Water 0 ml 01/17/22 06:00 Water,Injection,Sterile 10 Ml Vial IJ 02/15/22 23:59 DIRECTED PRN PFSH Active Problems Active Problems: Problem Status Onset Code Acute diffuse otitis externa of right ear H60.311 Sensorineural hearing loss H90.5 Otalgia of both ears H92.03 Lesion of uvula K13.70 Unspecified hearing loss, bilateral H91.93 Accidental insect sting T63.481A MRSA (methicillin resistant staph aureus) culture positive Z22.322 Abscess L02.91 Obesity E66.9 Gout M10.9 Chronic rhinitis J31.0 Asthma J45.909 Migraine G43.909 Axillary abscess L02.419 Left knee pain M25.562 Internal derangement of left knee M23.92 Medical History Medical History Deviated nasal septum (06/22/13) Smoker quit 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) Surgical History Surgical History (Updated 01/17/22 @ 07:22 by Frances Christianson) H/O nasal septoplasty Tobacco Smoking/Tobacco Use Status: Former Tobacco Use Alcohol Alcohol Intake: never Substance Use Substance use: Never Substance use type: does not use Vital Signs and Lab Results Vital Signs Most Recent Vital Signs in EMR: Most Recent Vital Signs Temp Pulse Resp BP Pulse Ox 36.6 C 81 16 145/101 H 96 01/17/22 07:15 01/17/22 07:15 01/17/22 07:15 01/17/22 07:15 01/17/22 07:15 Lab Results Blood Type / Crossmatch: No Data to Display Complete Blood Count: No Data to Display Complete Metabolic Panel: No Data to Display Liver Function Panel: No Data to Display Coagulation Panel: No Data to Display Cardiac Panel: No Data to Display Arterial Blood Gas: No Data to Display Venous Blood Gas: No Data to Display Pancreas Panel: No Data to Display Thyroid Panel: No Data to Display Infectious Disease: Coronavirus (COVID-19)(PCR) Negative (Negative) 01/16/22 10:24 Coronavirus 2019 Source Nasal/Nares 01/16/22 10:24 Blood Cultures: No Data to Display Toxicology Panel: No Data to Display Imaging and Studies Imaging and Studies Study information below may be from another EMR and interpreted by another provider. Please see original notes in EMR for more complete details. Echocardiogram Summary: Summary: 1. Left ventricle: The cavity size was normal. Systolic function was normal. The estimated ejection fraction was 55-60%. Diastolic parameters were normal. There was no evidence of elevated ventricular filling pressure by Doppler parameters. 2. Mitral valve: There was mild regurgitation. 3. Right ventricle: The cavity size was normal. Wall thickness was normal. Systolic function was normal. 4. Atrial septum: No defect or patent foramen ovale was identified. 5. Pulmonary arteries: Pulmonary systolic pressure was in the range of 20mm Hg to 30mm Hg. 6. Inferior vena cava: The vessel was normal in size. The respirophasic diameter changes were in the normal range (greater than or equal to 50%), consistent with normal central venous pressure. Anesthesia Assessment and Plan Anesthesia History Personal History: No History of Anesthesia Complications Family History: No Family History of Anesthesia Complications Exercise Tolerance Exercise Tolerance: Metabolic Equivalents>4 Pertinent Negatives Pertinent Negatives: No Symptoms of GERD, No Major Cardiovascular Symptoms or Complaints and No Major Pulmonary Symptoms or Complaints Cardiac & Pulmonary Exam Cardiac Exam: Normal S1/S2 Heart Sounds Pulmonary Exam: Clear Bilateral Breath Sounds Implantable Cardiac Device Does patient have a Pacemaker or an ICD?: No Airway Exam Known Difficult Airway: No Mallampati Class: 3 Mouth Opening: Narrow (< 3cm) Thyromental Distance: Greater than 3 cm Neck Range of Motion: Full ROM Neck Circumference: Thick Teeth Condition: Generalized Poor Dentition ASA Classification ASA Score: ASA 3 Emergency Case?: No NPO Status NPO Status: NPO Clears >2 hours, Solids >8 hours Anesthesia Plan Resuscitation Status: Full Code Anesthesia Technique: General Anesthesia Airway Planned: LMA Monitors Used: Standard Monitors
[2022-01-17] MEDS: ceFAZolin 3,000 MG in Normal Saline 100 ML 200 MG IVPB (10:32)
[2022-01-17] MEDS: Bupivacaine 0.5% Pres-Free 30 ML VIAL (11:06)
--- NOTE | 2022-01-17 11:53 | ROE_ITS ---
Date of service: 01/17/22 Time of Service: 11:40 Operative Note Operative Note DATE OF PROCEDURE: 01/17/22 PRE-OP DIAGNOSIS: Left Knee Internal Derangement POST-OP DIAGNOSIS: other (Left knee medial plica, medial femoral cartilage tear) PROCEDURE: Left knee arthroscopic synovectomy (Limited, plica excision) and medial femoral chondroplasty SURGEON: Jimy Dodson Refer to Anesthesia Record ESTIMATED BLOOD LOSS: 0 PATHOLOGY: none sent COMPLICATIONS: None Patient was transported to: PACU Patient's condition: stable Indications: I have seen Ravindra in clinic for a painful knee with mechanical symptoms. He is unable to tolerate MRI due to severe anxiety and claustrophobia. Nonoperative measures were exhausted but disability and pain persisted. I discussed knee arthroscopy. This would be a diagnostic arthroscopy with intervention as indicated based on was found during the arthroscopy. I reviewed the risks of the procedure to include, but not limited to, bleeding, infection, pain, stiffness, damage to nerves or vessels, recurrence, blood clot. Despite these risks, the patient elected to proceed. Findings: A diagnostic arthroscopy was performed with the following findings: Suprapatellar Pouch: No significant inflammation, no loose bodies Medial Compartment: No meniscal tear, intact meniscal root, focal area of chondromalacia over the distal and slightly anterior aspect of the central medial femur with a loose cartilage flap which was partial-thickness, no loose bodies, dense medial plica from the medial aspect of the knee to the anterior infrapatellar space Notch: ACL and PCL were intact Lateral Compartment: No meniscal tear, intact meniscal root, no significant chondromalacia or signs of arthritis, no loose bodies Patellofemoral Compartment: No significant chondromalacia, no apparent patellar maltracking Procedure Description: Ravindra was greeted in the preoperative holding area where the correct side was identified and marked. The consent was reviewed with the patient and signed. The history and physical was updated. All questions were answered. He was taken back to the operating room. The patient was placed into the supine position on the operating room table. All bony prominences were well padded. Prophylactic antibiotics in the form of cefazolin were administered. The left leg was then prepped with Chloraprep and draped in a standard fashion with stockinette and extremity drape. A timeout to confirm correct identity, side and site, procedure, allergies, anesthesia, and medical concerns was performed. The leg was placed into a pneumatic leg campuzano, [id number]. A standard lateral portal was made at the lateral border of the patella tendon in line with the inferior pole of the patella, soft spot. The skin and deep tissue was incised sharply and the blunt trochar was inserted atraumatically. A diagnostic arthro scopy was performed and the findings are listed above. The suprapatellar pouch had no significant inflammatory change. The patellofemoral articulation showed no articular damage as well as good tracking. The lateral gutter had no loose bodies and the medial gutter had no loose bodies. The knee was brought into some valgus stress in extension to open the medial compartment. A medial portal was made, localized by a spinal needle. The portal was created with an #11 blade through skin and capsule under direct visualization avoiding any meniscal injury. A probe was then inserted into the medial compartment. The medial compartment was fully inspected. The chondral surface of the tibia showed no significant chondromalacia and the surface of the femur showed a focal area of grade II chondromalacia with a loose flap of cartilage tissue. This was located over the central portion of the distal?anterior aspect of the medial femur. The medial meniscus had no meniscal tear. There was also noted to be a dense medial plica with abundant frayed tissue connecting the medial capsule to the anterior aspect of the knee just distal to the patella. Cartilage surfaces were debrided of any flaps, leaving any intact fibers. The notch was then inspected which showed an intact ACL and an intact PCL. The leg was then brought into a figure of 4 position. The lateral compartment was fully inspected with the arthroscope and a probe. The chondral surface of the lateral femur showed no significant chondromalacia. The chondral surface of the lateral tibia showed no significant chondromalacia. The lateral meniscus had no meniscal tear. The arthroscope was brought back into the suprapatellar pouch and the leg was in full extension. The medial plica was released with a shaver performing a synovectomy of the medial compartment making sure there is no abundant tissue nor impinging tissue nor taut tissue against the medial femur or within the patellofemoral space. The knee was then thoroughly irrigated with the arthroscopic fluid on high flow and pressure. Inflow was stopped and excess fluid was removed. The wounds were closed with 4-0 Nylon. They were dressed with Xeroform, 4x4 gauze, ABD pad, Kerlix and an ZARI wrap. A cryo-cuff was applied. The patient tolerated the procedure well and was returned to the Same Day Surgery area in a stable condition suffering no known complication.
[2022-01-17] MEDS: Ketorolac 15 MG/ML VIAL IVP (12:11)
--- NOTE | 2022-01-17 13:14 | W.ANESPOSTOP ---
Postoperative Evaluation Date, Time and Location Date Performed: 01/17/22 Time Performed: 13:14 Patient Location: Day Surgery Unit Vital Signs Most Recent Imported Vital Signs: Most Recent Vital Signs Temp Pulse Resp BP Pulse Ox 36.4 C L 77 18 136/95 H 97 01/17/22 13:00 01/17/22 13:00 01/17/22 13:00 01/17/22 13:00 01/17/22 13:00 Pain Score Most Recent Pain Score: Most Recent Pain Score Pain Level 0 01/17/22 13:00 Assessment Mental Status: Awake (Alert & Oriented to Patient Baseline) Airway and Respiratory Function: Patent airway with normal (patient baseline) respiratory exam Cardiovascular Function: Hemodynamically Stable Hydration Status: Adequately Hydrated Nausea & Vomiting: No Nausea or Vomiting Pain: Pt. Denies Any Pain Peripheral Nerve Block: Patient did not receive a nerve block
== END 2022-01-17 14:14 | disposition home or self-care (01) ==
PROVIDERS: PCP Family Medicine; Visit Provider Student in an Organized Health Care Education/Training Program
PROC: (CPT 29870; principal; 2022-01-17 09:45)
DX: M23.92 Unspecified internal derangement of left knee (principal); M67.52 Plica syndrome, left knee; E66.9 Obesity, unspecified; Z68.41 Body mass index [BMI] 40.0-44.9, adult; M10.9 Gout, unspecified; J45.909 Unspecified asthma, uncomplicated
CPT/HCPCS: 29879; J0690; J1100; J1885; J2405; J3010

== ENCOUNTER → 2022-01-29 08:51 | Outpatient (BNVA) | payer MEDICARE, MEDICAID, SELFPAY | PROVIDERS: PCP Family Medicine; Referring Provider Family Medicine; Visit Provider Physician Assistant | DX: Z47.89 Encounter for other orthopedic aftercare (principal); M23.92 Unspecified internal derangement of left knee ==

== ENCOUNTER 2022-02-17 15:59 | Emergency (ER) | payer MEDICARE, MEDICAID, SELFPAY ==
[2022-02-17 16:07] VITALS: BP 134/80; PULSE 106; RESP 18; TEMP 36.5; O2SAT 97
--- NOTE | 2022-02-17 16:33 | ED.GENADUL_ITS ---
Discharge Plan Disposition Patient Disposition: HOME Condition: Stable Discharge Details Clinical Impression: Cellulitis, Laceration of khalil Primary Care Provider: Marry Nicholson ED Provider: Amberly Sparks Home Meds and New Rx's Prescriptions: New cephalexin 500 mg capsule 500 mg PO Q6H 7 Days Qty: 28 0RF Continued mupirocin 2 % ointment 1 applic topical BID Incruse Ellipta 62.5 mcg/actuation blister with device 1 inh inhalation DAILY rizatriptan 10 mg tablet 10 mg PO ONCE Rx Instructions: may repeat once after at least 2 hours ipratropium-albuterol 0.5 mg-3 mg(2.5 mg base)/3 mL solution for nebulization 3 ml inhalation Q4H PRN albuterol sulfate [Ventolin HFA] 90 mcg/actuation HFA aerosol inhaler 2 puff inhalation Q6H PRN aspirin [Adult Aspirin Regimen] 81 mg tablet,delayed release (DR/EC) 81 mg PO DAILY ibuprofen 600 mg tablet 600 mg PO BID PRN albuterol sulfate 8.5 GM HFA aerosol inhaler 8.5 g Inhalation PRN loratadine 10 mg Tablet 10 mg PO DAILY montelukast 10 mg tablet 10 mg PO DAILY Label Comments: TAKE 1 TABLET BY MOUTH EVERY DAY budesonide-formoterol [Symbicort] 160-4.5 mcg/actuation HFA aerosol inhaler 1 inh INHALATION DAILY Label Comments: INHALE 2 PUFFS BY MOUTH TWICE DAILY ibuprofen 600 mg tablet 600 mg PO TID Qty: 30 0RF acetaminophen 500 mg capsule 1,000 mg PO Q8H PRN PRNQty: 30 0RF Discharge Instructions Instructions: Laceration (ED), Cellulitis (ED) Additional Instructions: Keep wound clean and dry Take antibiotics as prescribed Wash twice daily with warm soapy water Recheck in 48 hours Return with spreading redness, fever, worsening pain Referrals: Marry Nicholson MD [Primary Care Provider] - Discharge Data Discharge Date/Time-TO BE ENTERED AT DEPARTURE: 02/17/22 16:42 Medical Decision Making Patient appears well small area of suspected cellulitis Will be placed on Keflex Return precautions discussed and patient expressed understanding HPI General Date/Time Provider Initiated Documentation: 02/17/22 16:23 . HPI Narrative: This 51-year-old male presents with report of redness to right khalil. Reports that he dropped some wood on it 2 days ago and progressively become more red. He denies any fever or chills. He denies any additional complaints at this time. He states is slightly tender. Tetanus is reportedly up-to-date. Denies history of diabetes. Related Data Home Medications Medication Instructions Recorded Confirmed albuterol sulfate 90 mcg/actuation 8.5 g inhalation PRN 11/23/13 02/17/22 aerosol inhaler loratadine 10 mg tablet 10 mg PO DAILY 05/03/18 02/17/22 budesonide-formoterol HFA 160 1 inh inhalation DAILY 01/21/21 02/17/22 mcg-4.5 mcg/actuation aerosol inhaler (Symbicort) montelukast 10 mg tablet 10 mg PO DAILY 01/21/21 02/17/22 albuterol sulfate 90 mcg/actuation 2 puff inhalation Q6H PRN 04/25/21 02/17/22 aerosol inhaler (Ventolin HFA) aspirin 81 mg tablet,delayed 81 mg PO DAILY 04/25/21 02/17/22 release (Adult Aspirin Regimen) ibuprofen 600 mg tablet 600 mg PO BID PRN 04/25/21 01/29/22 ipratropium 0.5 mg-albuterol 3 mg 3 ml inhalation Q4H PRN 04/25/21 02/17/22 (2.5 mg base)/3 mL nebulization soln mupirocin 2 % topical ointment 1 applic topical BID 04/25/21 02/17/22 rizatriptan 10 mg tablet 10 mg PO ONCE 04/25/21 01/29/22 umeclidinium 62.5 mcg/actuation 1 inh inhalation DAILY 04/25/21 02/17/22 blister powder for inhalation (Incruse Ellipta) acetaminophen 500 mg capsule 1,000 mg PO Q8H PRN PRN #30 caps 01/17/22 01/29/22 ibuprofen 600 mg tablet 600 mg PO TID #30 tabs 01/17/22 01/29/22 cephalexin 500 mg capsule 500 mg PO Q6H 7 days #28 caps 02/17/22 Previous Rx's Medication Instructions Recorded acetaminophen 500 mg capsule 1,000 mg PO Q8H PRN PRN #30 caps 01/17/22 ibuprofen 600 mg tablet 600 mg PO TID #30 tabs 01/17/22 cephalexin 500 mg capsule 500 mg PO Q6H 7 days #28 caps 02/17/22 Allergies Allergy/AdvReac Type Severity Reaction Status Date / Time No Known Allergies Allergy Unverified 02/17/22 16:11 General Stated Complaint: Laceration JEREMI: 4 Review of Systems All systems reviewed & are unremarkable except as noted in HPI and below PFSH All Active Problems (Updated 01/29/22 @ 09:29 by JOHANNA Sanches) Cellulitis (Acute) Laceration of khalil (Acute) Acute diffuse otitis externa of right ear (Acute) Sensorineural hearing loss (Acute) Otalgia of both ears (Acute) Lesion of uvula (Acute) Unspecified hearing loss, bilateral (Acute) Accidental insect sting (Acute) MRSA (methicillin resistant staph aureus) culture positive (Acute) Abscess (Acute) Obesity (Chronic) Gout (Chronic) Chronic rhinitis (Acute) Asthma (Chronic) Migraine (Chronic) Axillary abscess (Acute) Left knee pain (Acute) Internal derangement of left knee (Acute) S/P arthroscopy: 01/17/2022 Medical History (Updated 02/17/22 @ 16:36 by JOHANNA Mcmillan) Deviated nasal septum (06/22/13) Smoker quit 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 Redness noted around small abrasion from approximately 1 inch region, no lymphangitis, no crepitus, no fluctuance or drainage Course Vital Signs Vital signs: Vital Signs Temperature 36.5 C 02/17/22 16:07 Pulse 106 H 02/17/22 16:07 Respiratory Rate 18 02/17/22 16:07 Blood Pressure 134/80 02/17/22 16:07 Pulse Oximetry 97 02/17/22 16:07 Temperature 36.5 C 02/17/22 16:07 Temperature Source Temporal Artery Scan 02/17/22 16:07 Pulse 106 H 02/17/22 16:07 Respiratory Rate 18 02/17/22 16:07 Respiratory Effort 02/17/22 16:10 Blood Pressure 134/80 02/17/22 16:07 Blood Pressure Position Sitting 02/17/22 16:07 Pulse Oximetry 97 02/17/22 16:07 Oxygen Delivery Method Room Air 02/17/22 16:07 Oxygen Flow Rate 0 02/17/22 16:07 Pain Level 0 02/17/22 16:26
[2022-02-17 16:42] VITALS: PULSE 90; RESP 18; O2SAT 99
[2022-02-17] MEDS: Cephalexin 500 MG CAP, 4 CAPS/BTL PO (16:42)
== END 2022-02-17 16:42 | disposition home or self-care (01) ==
PROVIDERS: Emergency Provider Physician Assistant; PCP Family Medicine
DX: S81.811A Laceration without foreign body, right lower leg, initial encounter (principal); L03.115 Cellulitis of right lower limb; Z87.891 Personal history of nicotine dependence; W20.8XXA Other cause of strike by thrown, projected or falling object, initial encounter
CPT/HCPCS: 99283; 99284

== ENCOUNTER 2022-02-21 19:57 | Outpatient (REF) | payer MEDICARE, MEDICAID, SELFPAY ==
[2022-02-21 17:15] LABS: Uric Acid 6.7 mg/dL (3.5-7.2)
[2022-02-21 17:49] LABS: Calculated LDL 112 mg/dL (<100); Cholesterol 202 mg/dL (<200); HDL Cholesterol 48 mg/dL (40-60); Triglyceride 214 mg/dL (<150)
[2022-02-21 18:23] LABS: Hemoglobin A1C 5.5 % (<5.7)
[2022-02-22 09:00] LABS: Hepatitis C Ab w Rflx HCV PCR Negative (Negative)
[2022-02-22 09:16] LABS: HIV-1/2 Ag & Ab Screen Negative (Negative)
== END 2022-02-21 19:58 | disposition home or self-care (01) ==
LOC: NCHCN 19:57
PROVIDERS: PCP Family Medicine; Visit Provider Family Medicine
DX: Z00.00 Encounter for general adult medical examination without abnormal findings (principal); Z13.1 Encounter for screening for diabetes mellitus; Z13.220 Encounter for screening for lipoid disorders; M10.9 Gout, unspecified; Z11.4 Encounter for screening for human immunodeficiency virus [HIV]; Z11.59 Encounter for screening for other viral diseases
CPT/HCPCS: 80061; 86803; 87389; 83036; 84550

== ENCOUNTER → 2022-02-26 08:21 | Outpatient (BNVA) | payer MEDICARE, MEDICAID, SELFPAY | PROVIDERS: PCP Family Medicine; Referring Provider Family Medicine; Visit Provider Student in an Organized Health Care Education/Training Program | DX: Z47.89 Encounter for other orthopedic aftercare (principal); M23.92 Unspecified internal derangement of left knee ==

== ENCOUNTER 2022-10-15 03:46 | Outpatient (CLI) | payer MEDICARE, MEDICAID, SELFPAY ==
[2022-10-15] MEDS: Albuterol HFA 18 GM 200 PUFF INH IH (08:50)
[2022-10-15] MEDS: Inhaler, Assist Device 1 EACH MC (08:50)
--- NOTE | 2022-10-15 16:18 | W.PFT ---
Date of service: 10/15/22 Time of Service: 07:59 Pulmonary Function Test Result Indications: Asthma Interpretation Spirometry: There is no airflow limitation. There is no bronchodilator response. The FVC is low. Lung Volumes: Normal lung volumes. Diffusion Capacity: Normal diffusion Airway Pressure: Normal airways resistance Impression Normal pulmonary fucntion testing with a restrictive appearing spirometry due to pseudo-restriction from obesity. Note: Pseudo-restriction was not present in 2011, however there has been a 40 lbs weight gain since this PFT. Clinical Correlation therefore is recommended.
== END 2022-10-15 03:47 | disposition home or self-care (01) ==
LOC: RT 03:47
PROVIDERS: PCP Family Medicine; Visit Provider Family Medicine
DX: J45.41 Moderate persistent asthma with (acute) exacerbation (principal)
CPT/HCPCS: 94060; 94726; 94729

== ENCOUNTER 2023-04-12 10:49 | Outpatient (REF) | payer MEDICARE, MEDICAID, SELFPAY ==
[2023-04-12 19:03] LABS: Anion Gap 9.5 mmol/L (3-11); BUN 19 mg/dL (7-18); CO2 27.5 mmol/L (21.0-32.0); Calcium 9.8 mg/dL (8.5-10.1); Chloride 102 mmol/L (98-107); Estimated GFR 91.12 (mL/min/1.73m2); Glucose 87 mg/dL (74-106); Potassium 4.1 mmol/L (3.5-5.1); Sodium 139 mmol/L (136-145)
[2023-04-12 19:28] LABS: Hemoglobin A1C 5.4 % (<5.7)
== END 2023-04-12 10:50 | disposition home or self-care (01) ==
LOC: NCHCN 10:49
PROVIDERS: PCP Family Medicine; Visit Provider Family Medicine
DX: I10 Essential (primary) hypertension (principal); R63.1 Polydipsia
CPT/HCPCS: 80048; 83036

== ENCOUNTER → 2023-09-24 03:45 | Outpatient (CLI) | payer MEDICARE, MEDICAID, SELFPAY ==
--- NOTE | 2023-09-24 | DI.US_ITS ---
APPROVED REPORT EXAM: Comprehensive 2D, Doppler, and color-flow Echocardiogram Patient Location: Out-Patient Microbiology Technologist: Devi Dyson RDCS (AE) Indications: Dyspnea Other Information Study Quality: Adequate. Technically limited study due to body habitus. Conclusion Normal left ventricular wall thickness and chamber size.. Wall motion is normal. EF is 55-60%. ther e is stage II diastolic dysfunction Normal right ventricular size and function Both atria are normal in size There is no structural or hemodynamically significant valvular disease Right ventricular systolic pressure could not be estimated Wall motion Left Ventricle The left ventricle is normal size. The overall left ventricular systolic function appears normal. T here is normal left ventricular wall thickness. There is normal LV segmental wall motion. Transmitral Doppler flow pattern suggests pseudonormalization. There is no ventricular septal defect visualized. LVEF is 57%. Right Ventricle Right ventricle is grossly normal in size. Right ventricular systolic function is grossly normal. Atria The left atrium size is normal. The right atrium size is normal. The interatrial septum is intact wit h no evidence for an atrial septal defect. Aortic Valve The aortic valve is normal in structure. There is no aortic valvular stenosis. No aortic regurgitatio n is present. Mitral Valve The mitral valve is normal in structure. No evidence of mitral valve stenosis. Trace mitral regurgita tion. Tricuspid Valve The tricuspid valve is normal in structure. There is no tricuspid valve stenosis. Trace tricuspid reg urgitation. Unable to assess PA pressure. Pulmonic Valve The pulmonary valve is normal in structure. There is no pulmonic valvular stenosis. There is no pulmo jayant valvular regurgitation. Great Vessels The aortic root is normal in size. The ascending aorta is normal in size. Aortic arch is not well vis ualized. IVC is normal in size and collapses >50% with inspiration. Pericardium There is no pericardial effusion. 2D Dimensions IVSD d PLAX 0.97 cm M: 0.6-1.2 Ao Root d 3.27 cm M: 3.1 - 3.7 LVPW d PLAX 0.98 cm M: 0.6 - 1.2 Ao Asc Diam d 3.14 cm M: 2.6 - 3.4 LVID d PLAX 5.32 cm M: 4.2 - 5.8 LVDs 3.67 cm M: 2.5 - 4.0 LV EF Teichholz 58.2 % FS 31.01 % LV EDV (Teich) 136.4 mL LV ESV (Teich) 56.9 mL M-Mode TAPSE 2.39 cm (M/F) >1.7 LA Volume LA Length A4C 4.9 cm LA Length A2C 4.2 cm LA Area A4C s 13.93 cm2 LA Area A2C s 11.28 cm2 LA Vol A4C A-L 33.63 mL LA Vol A2C A-L 25.61 mL LA Vol Biplane A-L 31.6 mL LA Vol/BSA A4C A-L LA Vol/BSA A2C A-L LA Vol/BSA BP A-L 14.5 mL/m2 LA Vol A4C MOD 31.7 mL LA Vol A2C MOD 24.1 mL LA Vol BP MOD 29.7 mL RA Volume RA Area A4C 13.9 cm2 RA ESV A4C (A-L) 34.0mL RA Vol/BSA A4C A-L RA Length A4C 4.8 cm RA ESV A4C (MOD) 32.6mL LV Diastology MV E' medial 0.087 (>0.07 m/s) MV E Vmax 0.86 (0.4-1.3 m/s) MV E/E' MED 9.80 (<14) MV A Vmax 0.85 (0.4-1.3 m/s) MV E' lateral 0.097 (>0.1 m/s) E/A Ratio 1.0 MV E/E' LAT 8.81 (<14) MV E' Average 0.092 m/s MV E/E'(average) 9.28 Aortic Valve AoV Vmax 1.29 m/s LVOT Vmax 1.25 m/s AoV Peak Grad 6.6 mmHg LVOT Peak Grad 6.2 mmHg AoV Area (Vmax) 3.42 cm2 LVOT VTI 0.257 m AoV VTI 0.264 m LVOT Mean Grad 3.6 mmHg AoV Mean Aaron. 0.87 m/s LVOT SV 90.54 mL AoV Mean Grad 3.5 mmHg LVOT Diam s 2.10 cm AoV Area (VTI) 3.43 cm2 Velocity Ratio 0.97 Mitral Valve MV DT 191 (160-240 msec) MV Vmax TIPS 0.76 m/s MV Mean Grad 1.2 (<2mmHg) MV VTI 0.260 m Pulmonary Valve PV Vmax 1.19 (0.5-1.5 m/s) PV Peak Grad 5.6 mmHg PV Mean Aaron 0.86 m/s PV Mean Grad 3.3 mmHg Tricuspid Valve RA Pressure 3.00 mmHg TV S' 0.14 m/s
== END ==
PROVIDERS: PCP Family Medicine; Visit Provider Student in an Organized Health Care Education/Training Program
DX: R06.00 Dyspnea, unspecified (principal)
CPT/HCPCS: 93306

== ENCOUNTER → 2023-09-26 11:01 | Outpatient (BNVA) | payer MEDICARE, MEDICAID, SELFPAY | PROVIDERS: PCP Family Medicine; Referring Provider Family Medicine; Visit Provider Physician Assistant Surgical | DX: J45.909 Unspecified asthma, uncomplicated (principal); R06.00 Dyspnea, unspecified | CPT/HCPCS: 99214 ==

== ENCOUNTER 2023-10-21 12:51 | Outpatient (REF) | payer MEDICARE, MEDICAID, SELFPAY ==
[2023-10-21 19:51] LABS: NT-proBNP 19 pg/mL (<300)
== END 2023-10-21 12:52 | disposition home or self-care (01) ==
LOC: NCHCN 12:51
PROVIDERS: PCP Family Medicine; Visit Provider Family Medicine
DX: I51.9 Heart disease, unspecified (principal)
CPT/HCPCS: 83880

== ENCOUNTER → 2023-12-27 09:03 | Outpatient (BNVA) | payer MEDICARE, MEDICAID, SELFPAY | PROVIDERS: PCP Family Medicine; Referring Provider Family Medicine; Visit Provider Student in an Organized Health Care Education/Training Program | DX: J45.909 Unspecified asthma, uncomplicated (principal) | CPT/HCPCS: 99213 ==

== ENCOUNTER 2024-03-30 16:54 | Emergency (ER) | payer MEDICARE, MEDICAID, SELFPAY ==
[2024-03-30 17:06] VITALS: BP 116/82; PULSE 100; RESP 18; TEMP 36.4; O2SAT 96
[2024-03-30] MEDS: Dexamethasone 10 MG/ML VIAL PO (17:45)
[2024-03-30] MEDS: Albuterol/Ipratropium 3 ML UPD VIAL UPD (17:45)
[2024-03-30 17:57] LABS: COVID-19 PCR Negative (Negative); Influenza A PCR Negative (Negative); Influenza B PCR Negative (Negative); RSV PCR Negative (Negative)
[2024-03-30 18:00] LABS: Source NASOPHARYNX
--- NOTE | 2024-03-30 18:02 | DI.RAD_ITS ---
Exam(s) XR CHEST 2V PA LATERAL EXAM: XR CHEST 2V PA LATERAL CLINICAL HISTORY: shortness of breath, cough. TECHNIQUE: 2D digital imaging was performed. COMPARISON: CR XR CHEST 2V PA LATERAL from 10/19/2019 FINDINGS: 2 views: Heart size is normal. The mediastinum is not widened. Lungs are clear. No infiltrates nor pleural effusions. IMPRESSION: No acute pulmonary findings. DATA REPOSITORY: RADIATION DOSE DELIVERED:
[2024-03-30 18:31] VITALS: RESP 18
--- OUTSIDE RECORDS SUMMARY | 2024-03-30 18:32 | XMS_ITS | Encounter Summary ---
Author Organization [facility] Address [address] [place] [address] Care Team Providers Care Lock And Dam Repairer Name Role Phone Italo Tarango MD Primary Care Provider [phone] Reason for Visit * Reason Comments New Patient Visit Took his last predni sone this monring Encounter Details Date Type Department Care Team (Late st Contact Info) Description 12/23/2019 9:30 EDT Office Visit [facility] Rheumatology [address] [place] [address] Herminio Vega MD [facility] Rheumatology [address] [place] [address] [place] [address] Acute idiopathic gout of multiple sites (Primary Dx) Social History Tobacco Use Types Packs/Day Years Used Date Smoking Tobacco: Never Assessed Sex and Gender Information Value Date Recorded Sex Assigned at Not on file Gender Identity Male 09/29/2019 9:10 EDT Sexual Orientation Not on file documented as of this encounter Last Filed Vital Signs Vital Sign Reading Time Taken Comments Blood Pressure 122/76 12/23/2019 0953 EDT Pulse - - Temperature - - Respiratory Rate - - Oxygen Saturation - - Inhaled Oxygen Concentration - - Weight 104.3 kg (230 lb) 12/23/2019 0953 EDT Height 144.8 cm (4' 9) 12/23/2019 0953 EDT Body Mass Index 49.77 12/23/2019 0953 EDT documented in this encounter Patient Instructions * Patient Instructions* Herminio Vega MD - 12/23/2019 9:30 EDT Images from the original note were not included. I will be in touch with Dr. Hernandez and make recommendations about evaluation and treatment for presumed gout. [facility] Patient Instructions Gout: Care Instructions Your Care Instructions Gout is a form of arthritis caused by a buildup of uric acid crystals in a joint. It causes sudden attacks of pain, swelling, redness, and stiffness, usually in one joint, especially the big toe. Gout usually comes on without a cause. But it can be brought on by drinking alcohol (especially beer) or eating seafood and red meat. Taking certain medicines, such as diuretics or aspirin, also can bring on an attack of gout. Taking your medicines as prescribed and following up with your doctor regularly can help you avoid gout attacks in the future. Follow-up care is a villela part of your treatment and safety. Be sure to make and go to all appointments, and call your doctor if you are having problems. It's also a good idea to know your test resultsand keep a list of the medicines you take. How can you care for yourself at home? ?? If the joint is swollen, put ice or a cold pack on the area for 10 to 20 minutes at a time. Put a thin cloth between the ice and your skin. ?? Prop up the sore limb on a pillow when you ice it or anytime you sit or lie down during the next3 days. Try to keep it above the level of your heart. This will help reduce swelling. ?? Rest sore joints. Avoid activities that put weight or strain on the joints for a few days. Take short rest breaks from your regular activities during the day. ?? Take your medicines exactly as prescribed. Call your doctor if you think you are having a problem with your medicine. ?? Take pain medicines exactly as directed. ? If the doctor gave you a prescription medicine for pain, take it as prescribed. ? If you are not taking a prescription pain medicine, ask your doctor if you can take an fheo-zmr-hucxmwr medicine. ?? Eat less seafood and red meat. ?? Check with your doctor before drinking alcohol. ?? Losing weight, if you are overweight, may help reduce attacks of gout. But do not go on a crashdiet. Losing a lot of weight in a short amount of time can cause a gout attack. When should you call for help? Call your doctor now or seek immediate medical care if: ? You have a fever. ? The joint is so painful you cannot use it. ? You have sudden, unexplained swelling, redness, warmth, or severe pain in one or more joints. ??Watch closely for changes in your health, and be sure to contact your doctor if: ? You have joint pain. ? Your symptoms get worse or are not improving after 2 or 3 days. Where can you learn more? Go to [email or web address] or log into your [employer] account at [email or web address] Enter E531 in the search box to learn more about Gout: Care Instructions. Current as of: June 21, 2019Content Version: 12.4 ?? [id number] [employer]. Care instructions adapted under license by [facility]. If you have questions about a medical condition or this instruction, always ask your healthcare professional. [employer] disclaims any warranty or liability for your use of this information. documented in this encounter Progress Notes * Herminio Vega MD - 12/23/2019 0930 EDT [facility] Rheumatology Chief Complaint Patient presents with ??? New Patient Visit Took his last prednisone this cali Waite is a new patient to [facility] section of Rheumatology. He was referred by his primary care provider Dr. Marry Hernandez for evaluation of gout affecting the ankle. It is reported that he has had intermittent pain in the ankles responsive to prednisone with a uric acid level of8.2. Was treated initially with allopurinol and had a hive-like reaction and then was tried on probenecid which was stopped due to dry skin and cracking experienced in the toes and heels. Chief complaint: Gout He arrived 20 minutes late for his appointment. HPI: Ravindra is a 49-year-old with medical history notable for obesity, asthma, bilateral hearing loss, migraine headaches, nephrolithiasis. History was somewhat difficult to easily obtain due to problems with hearing loss and use of masks for both patient and provider. To the best I can determine hewas first diagnosed with gout approximately 2 to 3 years ago. The pattern of the inflammation whichaffects the right ankle more than the left and also the great toe is intermittent approximately 3-4times per year. He states that he has never had a joint aspiration for a crystal diagnosis with polarizing light microscope. He stated that he developed a hive-like rash with allopurinol after 2 days. This resolved after discontinuation. It is unclear to me exactly why he stopped the probenecid. Hestates that he was using this for several days he had stopped it because it was not working. Referral indicates that he was on this for approximately 10 days and stopped this due to dry skin. He is currently experiencing a flare of right ankle pain which has been treated over the last 5 days with prednisone. He took 5 mg of prednisone today and this is his last dose. Current Outpatient Medications: aspirin chewable 81 mg tablet budesonide (RINOCORT AQUA) 32 mcg/actuation nasal spray budesonide-formoterol HFA (SYMBICORT) 160-4.5 mcg/actuation HFA aerosol inhaler inhaler ibuprofen (MOTRIN) 600 mg tablet loratadine (CLARITIN) 10 mg tablet montelukast (SINGULAIR) 10 mg tablet probenecid (BENEMID) 500 mg tablet rizatriptan (MAXALT) 10 mg tablet umeclidinium (INCRUSE ELLIPTA) 62.5 mcg/actuation VENTOLIN HFA 90 mcg/actuation inhaler No current facility-administered medications for this visit. Allergies include: Allopurinol. Probenecid Review of Systems: 14 point ROS was done with the patient. See scanned document for details. Pertinent positives and negatives are noted in the HPI. Constitutional: No fevers. No fatigue. No night sweats. Weight is stable. He is obese. HEENT: No eye pain. No eye dryness. No vision loss. Bilateral hearing loss. Cardiovascular: No chest pain. Pulmonary: Currently no dyspnea cough or wheezing. Gastrointestinal: No nausea or vomiting. No abdominal pain or cramping. No blood in the stools. No diarrhea or constipation. No heartburn or difficulty swallowing. Dermatologic: Previously had rash with allopurinol and dry skin with probenecid by report. No photosensitivity. Vascular: He has had color changes in his feet when affected with inflammation which is most likelyfrom gout. No history of blood clots. Musculoskeletal: Joint pain mostly involving feet and ankles when inflamed. Does not report any muscle pain. No morning stiffness. No back pain. Neurologic: Has history of migraine headaches. Does not report any paresthesias. Genitourinary: Has history of nephrolithiasis. It is not clear to me if this stone was analyzed forcomposition. Habits: He is a non-smoker. He previously used chewing tobacco. States that he drinks approximately1 alcoholic beverage per week. Activities of daily living: He sometimes has difficulty walking. He sometimes has difficulty driving. Family history: Mother . Father might have gout. Brother does not have gout. No other history of autoimmune or inflammatory rheumatologic disease reported. Social history: He has a girlfriend. He states that he has 4 children. He lives in [place]. He isnot working. 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 Physical Examination: BP 122/76 Ht (!) 144.8 cm (57) Wt (!) 104.3 kg (230 lb) BMI 49.77 kg/m?? Physical exam: General appearance and movement: alert, nontoxic, no distress, overweight and deconditioned appearing. Wearing facial covering. Bilateral hearing aids. Significantly hard of hearing and communicationdifficult with both interviewer and patient wearing facial covering. HEENT: anicteric sclerae, conjunctivae clear Heart: regular rate and rhythm, no murmur, no extra sounds, no rubs Lungs: clear to auscultation, no rales, rubs, or wheezes Skin: no rash, no tophi Vascular: 2+ pulses in all 4 extremities Neurologic: Normal mental status, speech at times difficult to comprehend, comprehension intact though unclear at what educational level, alert Normal muscle bulk No abnormal movements, tremors, or fasciculations 5/5 strength in B/L UE/LE Slightly antalgic gait favoring right ankle and foot Musculoskeletal: Hands: no nail pitting or onycholysis, OA changes in the PIPs and DIPs no synovial swelling or tenderness in MCPs or PIPs, neurovascular intact, no thenar atrophy; no dactylitis Wrists: no synovial swelling or tenderness, normal flexion and extension Elbows: no effusions or nodules, full flexion/extension, pronation and supination Shoulders: full range of motion in flexion, extension, internal and external rotation Ankles: no effusions, nontender to palpation and range of motion in subtalar and tibiotalar motions Feet: no synovitis or dactylitis Myofascial exam: no fasciculations or atrophy Labs: July 24, 2019: Basic metabolic panel with calcium 9.5, creatinine 0.90, normal electrolytes. Uric acid 7.0. 05/01/2018: Uric acid 8.2 July 19, 2017: Hemoglobin A1c 5.2. Basic metabolic panel with calcium 9.4, creatinine 0.92, normal electrolytes. Total cholesterol 212. Triglyceride 150. HDL cholesterol 40 direct LDL cholesterol 139. TSH 1.13 Diagnostic imaging: Labs: No visits with results within 6 Month(s) from this visit. Latest known visit with results is: Results Only on 03/05/2019 Component Date Value ??? Pathology Report: 03/05/2019 Value:SURGICAL PATHOLOGY REPORT Reports generated via electronic interface contain original data; however they are lacking the format of the original report. Caution should be taken when reading/interpreting unformatted reports. Name: RAVINDRA YOUNGER : 1970 (Age: 48) M Collect Date: 03/05/2019 Location: [facility] Receive Date: 03/06/2019 Provider: ALISIA MANE DO Copy to: MARRY HERNANDEZ MD Final Pathologic Diagnosis: A. UVULA, LEFT BASE, BIOPSY: - Polypoid squamous mucosa and minor salivary gland with focal chronic inflammation. - No dysplasia or maciel malignancy. B. UVULA, LEFT SUPERIOR, BIOPSY: - Squamous mucosa with submucosal hyperplastic salivary glands. - No dysplasia or maciel malignancy. C. UVULA, RIGHT BASE, BIOPSY: - Squamous mucosa with mild reactive changes. - No dysplasia or maciel malignancy. D. TONSIL, LEFT SUPERIOR, BIOPSY: - Squamous mucosa with submucosal adipose tissue aggregate. - No definitive tonsillar tissue seen. Document reviewed and electronically signed by: Seb Gómez MD Report Date: 03/10/2019 15:47 By the signature above, the attending physician certifies that he/she has personally conducted a gross and/or microscopic examination of the described specimens and rendered or confirmed the above diagnosis. Specimen(s) Received: A. Lesion of uvula left base B. Left superior lesion of uvula C. Uvula right base D. Left superior tonsil Clinical History: Uvula and tonsil lesions; clinical diagnosis code: K13.70 Gross Description: A. Received in formalin labelled with proper patient identification (initials W, R) and left base lesion of uvula two martni-brown tissues (0.8 x 0.5 x 0.2 cm and 0.5 x 0.4 x 0.1 cm). Entirely submitted in A1. B. Received in formalin labelled wi th proper patient identification (initials W, R) and left superior lesion of uvula is a single martin tissue fragment (0.6 x 0.4 x 0.4 cm). The specimen is bisected and submitted entirely in B1. C. Received in formalin labelled with proper patient identification (initials W, R) and right base lesion of uvula is a single martin-brown tissue fragment (0.5 x 0.4 x 0.1 cm). Submitted intact in C1. D. Received in formalin labelled with proper patient identification (initials W, R) and left superior tonsil is single pink-martin tissue fragment (0.4 x 0.3 x 0.1 cm). Submitted intact in D1. JOHANNA Reed ([facility]) 03/06/2019 6:19 PM End of Report Diagnosis / Assessment: ' 1. Acute idiopathic gout of multiple sites Ravindra's presentation may be most consistent with intercritical gout. Unfortunately this has not yet been confirmed by a joint aspiration. Also, at this time, I do not have evidence that he had stone analysis for nephrolithiasis to determine if the composition of the stone was uric acid. He has been tried on a uric acid lowering agent and a uricosuric agent. He developed hives with allopurinol and dry skin with probenecid. He may be a candidate for using febuxostat as a uric acid lowering agent as he has had an adverse reaction to allopurinol. The concern with allopurinol and rash is development of allopurinol hypersensitivity syndrome. There have been protocols developed for desensitization to allopurinol yet this is very complex protocol and runs the risk of severe adverse reactions. I think it would be worthwhile to try nonpharmacologic management of gout before putting him on a medication that has known cardiovascular impacts as have been d ocumented in black box warnings for this medication. In 2018 his uric acid level was 8.2. More recently it was 7.0. This was in July 2019. It may be worthwhile to repeat his uric acid but overall I do not think that it would affect my recommendations. I recommend the followin) x-ray of right foot and ankle to determine if there is radiographic evidence of gouty arthropathy. This would be an indication for uric acid lowering therapy. 2) review urology notes to determine if a stone analysis was performed. If the composition of the stone was predominantly uric acid then this would also be an indication for uric acid lowering therapy. 3) with inflamed joint aspiration is highly recommended with fluid analysis under a polarizing light microscope to assess for uric acid crystals. Less likely that this is due to calcium pyrophosphate, yet in order to justify using potentially lifelong uric acid lowering therapy we need to document uric acid related inflammation. This may be best done through orthopedics locally when this happens. 4 try low purine diet and increase hydration aggressively. He is not on a diuretic so this is not something we can stop. He is also not a heavy alcohol user so this is also not a modifiable risk. Thank you very much for referring Ravindra to [facility]. Please feel free to contact me if youhave any further questions or concerns regarding his evaluation. I would be happy to see him in case of an inflamed joint to do the aspiration in the office here. The difficulty is the distance however and it may be more accessible to have him get this done locally closer to home. Recommendations/Evaluation: 60 mins [id number] time, > 50% spent in discussion about the diagnostic and therapeutic approach to assessing patients with musculoskeletal complaints. We discussed how to differentiate between inflammatory and mechanical causes of musculoskeletal pain. We discussed pattern recognition in identifying specific rheumatologic conditions and the role of diagnostic testing. We discussed treatmentoptions including pharmacologic and nonpharmacologic approaches. Herminio Vega MD documented in this encounter Plan of Treatment Not on file documented as of this encounter Visit Diagnoses Diagnosis Acute idiopathic gout of multiple sites- Primary documented in this encounter Historical Medications * This list may reflect changes made after this encounter. Medication Sig Dispensed Refills Start Date End Date budesonide (RINOCORT AQUA) 32 mcg/actuation nasal spray Instill 2 Sprays into right nostril daily. rizatriptan (MAXALT) 10 mg tablet Take 10 mg by mouth as needed for Migraine. May repeat in 2 hours if needed umeclidinium (INCRUSE ELLIPTA) 62.5 mcg/actuation Inhale 62.5 mcg as directed daily. budesonide-formoterol HFA (SYMBICORT) 160-4.5 mcg/actuation HFA aerosol inhaler inhaler Inhale as directed 2 times daily. loratadine (CLARITIN) 10 mg tablet Take 10 mg by mouth daily. aspirin chewable 81 mg tablet Take 81 mg by mouth daily. ibuprofen (MOTRIN) 600 mg tablet Take 600 mg by mouth if needed for Pain. VENTOLIN HFA 90 mcg/actuation inhaler Take 2 Puffs by mouth if needed. 10/28/2019 probenecid (BENEMID) 500 mg tablet Take 1 Tab by mouth 2 times daily. 11/08/2019 montelukast (SINGULAIR) 10 mg tablet Take 1 mg by mouth daily. 11/08/2019 added in this encounter Care Teams Lock And Dam Repairer Relationship Specialty Start Date End Date Italo Tarango MD [address] [place] [id number] PCP - General 01/27/17 documented as of this encounter
--- OUTSIDE RECORDS SUMMARY | 2024-03-30 18:32 | XMS_ITS | Referral Summary ---
Author Organization [facility] Address [address] [place] [address] Care Team Providers Care Washer And Capper Machine Operator Name Role Phone Italo Tarango MD Primary Care Provider [phone] Allergies Active Allergy Reactions Criticality Noted Date Comments Allopurinol 12/23/2019 Medications Medication Sig Dispensed Refills Start Date End Date Status montelukast (SINGULAIR) 10 mg tablet Take 1 mg by mouth daily. 11/08/2019 Active probenecid (BENEMID) 500 mg tablet Take 1 Tab by mouth 2 times daily. 11/08/2019 Active VENTOLIN HFA 90 mcg/actuation inhaler Take 2 Puffs by mouth if needed. 10/28/2019 Active ibuprofen (MOTRIN) 600 mg tablet Take 600 mg by mouth if needed for Pain. Active aspirin chewable 81 mg tablet Take 81 mg by mouth daily. Active loratadine (CLARITIN) 10 mg tablet Take 10 mg by mouth daily. Active budesonide-formoterol HFA (SYMBICORT) 160-4.5 mcg/actuation HFA aerosol inhaler inhaler Inhale as directed 2 times daily. Active umeclidinium (INCRUSE ELLIPTA) 62.5 mcg/actuation Inhale 62.5 mcg as directed daily. Active rizatriptan (MAXALT) 10 mg tablet Take 10 mg by mouth as needed for Migraine. May repeat in 2 hours if needed Active budesonide (RINOCORT AQUA) 32 mcg/actuation nasal spray Instill 2 Sprays into right nostril daily. Active Active Problems Problem Noted Date Diagnosed Date Acute idiopathic gout of multiple sites 12/23/19 20 Chronic rhinitis 12/23/2019 Obesity due to excess calories 12/23/2019 Moderate asthma 12/23/2019 Bilateral hearing loss 12/23/2019 History of migraine headaches 12/23/2019 Nephrolithiasis 12/23/2019 Tobacco use 12/23/2019 Social History Tobacco Use Types Packs/Day Years Used Date Smoking Tobacco: Never Assessed Interpersonal Safety Answer Date Record ed Physically Hurt Never 02/14/2020 Verbally Threaten Not on file 02/14/2020 Sex and Gender Information Value Date Recorded Sex Assigned at Not on file Gender Identity Male 09/29/2019 9:10 EDT Sexual Orientation Not on file Last Filed Vital Signs Vital Sign Reading Time Taken Comments Blood Pressure 122/76 12/23/2019 0953 EDT Pulse - - Temperature - - Respiratory Rate - - Oxygen Saturation - - Inhaled Oxygen Concentration - - Weight 104.3 kg (230 lb) 12/23/2019 0953 EDT Height 144.8 cm (4' 9) 12/23/2019 0953 EDT Body Mass Index 49.77 12/23/2019 0953 EDT Plan of Treatment Not on file Procedures Procedure Name Priority Date/Time Associated Diagnosis Comments HEPATITIS C AB W REFLEX TO HCV RNA BY PCR Routine 02/21/2022 11:09 EDT from Last 3 Months or Most Recently Relevant to Health Maintenance Results * HEPATITIS C AB W REFLEX TO HCV RNA BY PCR (02/21/2022 11:09 EDT) Hep C Antibody Negative Negative 02/22/2022 8:56 EDT [facility] Blood VENOUS BLOOD / Unknown 02/21/2022 11:09 EDT 02/21/2022 21:28 EDT Provider Outr Resulting Lab CHEMISTRY & BLOOD GAS ORDERABLES [facility] [address] [place] [address] from Last 3 Months or Most Recently Relevant to Health Maintenance Care Teams Washer And Capper Machine Operator Relationship Specialty Start Date End Date Italo Tarango MD [address] [place] [id number] PCP - General 01/27/17
--- OUTSIDE RECORDS SUMMARY | 2024-03-30 18:32 | XMS_ITS | Encounter Summary ---
Author Organization [facility] Address [address] [place] [address] Care Team Providers Care Textile Slitting Machine Operator Name Role Phone Italo Tarango MD Primary Care Provider [phone] Encounter Details Date Type Department Care Team (Late st Contact Info) Description 09/04/2021 Lab Requisition [facility] Pathology & Laboratory Medicine - [facility] [address] [place] [address] Outr Resulting Lab, Provider Social History Tobacco Use Types Packs/Day Years Used Date Smoking Tobacco: Never Assessed Interpersonal Safety Answer Date Record ed Physically Hurt Never 02/14/2020 Verbally Threaten Not on file 02/14/2020 Sex and Gender Information Value Date Recorded Sex Assigned at Not on file Gender Identity Male 09/29/2019 9:10 EDT Sexual Orientation Not on file documented as of this encounter Plan of Treatment Not on file documented as of this encounter Procedures Procedure Name Priority Date/Time Associated Diagnosis Comments CCP ANTIBODIES Routine 09/04/2021 11:19 EST ANTI NUCLEAR AB (YANCI), IFA Routine 09/04/2021 11:19 EST documented in this encounter Results * ANTI NUCLEAR AB (YANCI), IFA (09/04/2021 11:19 EST) YANCI Interpretation Negative Negative 2021 14:25 EST [facility] Comment:No titer performed, YANCI Screen is negative. Blood VENOUS BLOOD / Unknown 09/04/2021 11:19 EST 09/04/2021 21:41 EST Narrative [facility] - 09/05/2021 14:25 EST Results were obtained with the INOVA NOVA Lite HEp-2 YANCI Kit by indirect immunofluorescence. Provider Outr Resulting Lab IMMUNOLOGY A ND SEROLOGY ORDERABLES Performing Organization Address [facility] Co de Phone Number [facility] [address] [place] [address] * CCP ANTIBODIES (09/04/2021 11:19 EST) CCP Antibodies <2.5 <5.0 U/mL 09/05/2021 10:07 EST [facility] Blood VENOUS BLOOD / Unknown 09/04/2021 11:19 EST 09/04/2021 21:41 EST Provider Outr Resulting Lab IMMUNOLOGY A ND SEROLOGY ORDERABLES Performing Organization Address [facility] de Phone Number [facility] [address] [place] [address] documented in this encounter Visit Diagnoses Not on filedocumented in this encounter Care Teams Textile Slitting Machine Operator Relationship Specialty Start Date End Date Italo Tarango MD [address] [place] [id number] PCP - General 01/27/17 documented as of this encounter
--- OUTSIDE RECORDS SUMMARY | 2024-03-30 18:32 | XMS_ITS | Encounter Summary ---
Author Organization [facility] Address [address] [place] [address] Care Team Providers Care Communications Instructor Name Role Phone Italo Tarango MD Primary Care Provider [phone] Encounter Details Date Type Department Care Team (Late st Contact Info) Description 02/21/2022 Lab Requisition [facility] Pathology & Laboratory Medicine - [address] [address] Outr Resulting Lab, Provider Social History Tobacco [...] RNA BY PCR Routine 02/21/2022 11:09 EDT documented in this encounter Results * HEPATITIS C AB W REFLEX TO HCV RNA BY PCR (02/21/2022 11:09 EDT) Hep C Antibody Negative Negative 02/22/2022 8:56 EDT [facility] Blood VENOUS BLOOD / Unknown 02/21/2022 11:09 EDT 02/21/2022 21:28 EDT Provider Outr Resulting Lab CHEMISTRY & BLOOD GAS ORDERABLES [facility] [address] [place] [address] documented in this encounter Visit Diagnoses Not on filedocumented in this encounter Care Teams Communications Instructor Relationship Specialty Start Date End Date Italo Tarango MD [address] [place] [id number] PCP - General 01/27/17 documented as of this encounter
--- OUTSIDE RECORDS SUMMARY | 2024-03-30 18:32 | XMS_ITS | Encounter Summary ---
Author Organization [facility] Address [address] [place] [address] Care Team Providers Care Wood Treating Inspector Name Role Phone Italo Tarango MD Primary Care Provider [phone] Encounter Details Date Type Department Care Team (Late st Contact Info) Description 02/21/2022 Lab Requisition [facility] Pathology & Laboratory [facility] - [facility] [address] [place] [address] Outr Resulting Lab, Provider Social History Tobacco [...] Procedure Name Priority Date/Time Associated Diagnosis Comments HIV 1/2 ANTIGEN AND ANTIBODY, 4TH GENERATION Routine 02/21/2022 11:09 EDT documented in this encounter Results * HIV 1/2 ANTIGEN AND ANTIBODY, 4TH GENERATION (02/21/2022 11:09 EDT) HIV 1 and 2 Antibody/p24 Antigen, 4th Generation Negative Negative 02/22/2022 9:[address] [facility] Comment:If acute HIV-1 infec tion is suspected in a high risk patient, submit plasma specimen for HIV-1 RNA quantitation test. Blood VENOUS BLOOD / Unknown 02/21/2022 11:09 EDT 02/21/2022 21:28 EDT Narrative [facility] - 02/22/2022 9:12 EDT Fourth Generation assay performed on the Siemens Image Engine Designaur XPT. Provider Outr Resulting Lab IMMUNOLOGY A ND SEROLOGY ORDERABLES Performing Organization Address City/State/[place] Co de Phone Number [facility] [address] [place] [address] documented in this encounter Visit Diagnoses Not on filedocumented in this encounter Care Teams Wood Treating Inspector Relationship Specialty Start Date End Date Italo Tarango MD [address] [place] [id number] PCP - General 01/27/17 documented as of this encounter
--- OUTSIDE RECORDS SUMMARY | 2024-03-30 18:32 | XMS_ITS | Clinical Summary ---
Author Organization [facility] Address [address] [place] [address] Care Team Providers Care Freelance Art Director Name Role Phone Italo Tarango MD Primary Care Provider [phone] Allergies Active Allergy Reactions Criticality Noted Date [...] 49.77 12/23/2019 0953 EDT Plan of Treatment Health Maintenance Due Date Last Done Comments Hepatitis B Vaccine (1 of 3 - 19+ 3-dose series) 09/20 COVID-19 Vaccine (2022-24 season) 2023 Hepatitis C Screen Completed 02/21/2022 Procedures Procedure Name Priority Date/Time Associated Diagnosis Comments HEPATITIS C AB W REFLEX TO HCV RNA BY PCR Routine 02/21/2022 11:09 EDT from Last 3 Months or Most Recently Relevant to Health Maintenance Results * HEPATITIS C AB W REFLEX TO HCV RNA BY PCR (02/21/2022 11:09 EDT) Hep C Antibody Negative Negative 02/22/2022 8:56 EDT [facility] Blood VENOUS BLOOD / Unknown 02/21/2022 11:09 EDT 02/21/2022 21:28 EDT Provider Outr Resulting Lab CHEMISTRY & BLOOD GAS ORDERABLES [facility] [address] [place] [address] from Last 3 Months or Most Recently Relevant to Health Maintenance Care Teams Freelance Art Director Relationship Specialty Start Date End Date Italo Tarango MD [address] [place] [address] PCP - General 01/27/17
--- OUTSIDE RECORDS SUMMARY | 2024-03-30 18:32 | XMS_ITS | Continuity of Care Document ---
Author Organization [facility] Address [address] [place] [address] Encounter [facility] NBR [id number] Date(s): 07/05/23 - 07/05/23 [facility] [address] [place], [place] [address] Discharge Disposition: Home or Self Care Attending Physician: Lorenzo Torres
--- OUTSIDE RECORDS SUMMARY | 2024-03-30 18:32 | XMS_ITS | Encounter Summary ---
Author Organization [facility] Address [address] [place] [id number] Care Team Providers Care Filler Wiper Name Role Phone Italo Tarango MD Primary Care Provider [phone] Encounter Details Date Type Department Care Team (Late st Contact Info) Description 02/15/2021 Lab Requisition [facility] Pathology & Laboratory Medicine - [address] [address] Outr Resulting Lab, Provider Social History Tobacco [...] Procedure Name Priority Date/Time Associated Diagnosis Comments ZZCOVID-19 TEST [facility] PCR Today 02/15/2021 11:15 EDT COVID-19 TESTING Routine 02/15/2021 11:1 5 EDT documented in this encounter Results * COVID-19 TEST [facility] PCR (02/15/2021 11:15 EDT) Swab ENTIRE NASOPHARYNX / Unknown 02/15/2021 11:15 EDT 02/15/2021 20:58 EDT Provider Outr Resulting Lab MICROBIOLOGY - GENERAL ORDERABLES Performing Organization Address City/State/[facility] de Phone Number [facility] [address] [place] [address] * COVID-19 TESTING (02/15/2021 11:15 EDT) COVID-19 rt-PCR Result Negative Negative 02/16/2021 12:21 EDT [facility] Comment: This test has not been FDA cleared or approved. This test has been authorized by FDA under an EUA for use by authorized laboratories. This test has been authorized only for detection of nucleic acid from 2019-nCoV, not for any other viruses or pathogens. This test is only authorized for the duration of the declaration that circumstances exist justifying the authorization of emergency use of in vitro diagnostic tests for detection and/or diagnosis of 2019-nCoV under section 564(b)(1) of Act, 21 U.S.C ?? 360bbb-3(b) (1), unless the authorization is terminated or revoked sooner. Negative results do not preclude 2019-nCoV infection and should not be used as the sole basis for treatment or other patient management decisions. Negative results must be combined with clinical observations, patient history, and epidemiological information. Performed on the AccuDrafther Fusion instrument Performing Lab [facility] 02/16/2021 12:21 EDT [facility] Swab 02/15/2021 11:1 5 EDT 02/15/2021 20:58 EDT Provider Outr Resulting Lab MICROBIOLOGY - GENERAL ORDERABLES Performing Organization Address [facility] Co de Phone Number [facility] [address] [place] [address] documented in this encounter Visit Diagnoses Not on filedocumented in this encounter Care Teams Filler Wiper Relationship Specialty Start Date End Date Italo Tarango MD [address] [place] [id number] PCP - General 01/27/17 documented as of this encounter
--- OUTSIDE RECORDS SUMMARY | 2024-03-30 18:32 | XMS_ITS | Data Portability ---
Author Organization [place] - [facility] Address Jose [place] [address] Care Team Providers Care Security Rover Name Role Phone SAAD THOMPSON Driver Supervisor [phone] Assessment Encounter Date Assessment Date Assessment LastModified by Organization Details LastModified Time 10/21/2023 10/21/2023 Patient presente d to office today for their Medicare Annual Wellness Visit. Education was provided on healthy nutrition, including a diet rich in fruits and vegetables, minimizing simple carbohydrates, salt, and saturated fats. Encouraged regular cardiovascular exercise such as walking at least 30 minutes daily, 5 times per week. Emphasized preventive health measures and educated pt on fall prevention and community-based lifestyle interventions to help reduce health risks and promote healthy living. Personalized prevention plan (PPP) completed and reviewed with patient. Patient was given written copy of PPP at conclusion of visit, detailing prior screening and 5-10 year future screening plan including: screenings for breast cancer and colorectal cancer, immunizations, and other age appropriate screenings consistent with USPSTF and ACIP guidelines Not available 10/20/2023 20:19:27 Plan of Treatment Reminders Order Date Submit Date Provider Last Modified By Organization Details Last Modified Time Details Appointments Follow Up 2023 10:20A M Not available Not available Not available Lab pro BNP (pro B-type natriuret ic peptide), serum or plasma 2023 024 [facility] (Registration ), [address] [place] [address] [place], [address], 10/22/2023 09:48:51 Referral None recorded. Procedures None recorded. Surgeries None recorded. Imaging None recorded. Medication Orders [address] 10 mg tablet 2023 024 [id number], [address] [place], [place], [id number], 10/21/2023 10:38:12 Patient TargetsNo targets recorded. Patient Instructions Encounter Date Encounter Id Patient Instructions Last Modified By Organization Details Last Modified Time 10/21/2023 [id number] diet [email or web address] Not available 10/20 13:01:38 exercise [email or web address] Not available 2023 13:01:38 Stop drinking milk. Not available 10/21/2023 10:47:38 Reason for Referral None Reported. Results Created Date Observation Date Name Description Value Unit Range Abnormal Flag Note LastModifiedBy Organization Detail LastModifiedTime 10/21/19 24 10/21/2023 NT-IN OBNP nt-probnp 19 pg/mL <300 NT-pr oBNP value s <300 pg/mL have a 98% negat valeriano predi ctive value for exclu ding acute conge stive heart failu re(CH F). NOTE: Supra -phys iolog ic doses of Bioti n(B7) may cause false negat valeriano resul ts. Not Available [facility] (Registration ) [address] [place] [address] [place], [address], 10/21/2023 19:55:51 03/30/20 24 03/30/2024 COVID /FLU/ RSV PCR source NASOPH ARYNX Not Available [address] [place], [address] 03/30/2024 18:03:14 03/30/20 24 03/30/2024 COVID /FLU/ RSV PCR covid-19 PCR Negati ve negati ve This test has not been FDA clear ed or appro alvaro. This test has been autho rized by the FDA under an Emerg ency Use Autho rizat ion for use by autho rized labor atori es. This test has been autho rized only for detec tion of nucle ic acid from the 2018 novel coron a virus (2018 -nCoV ), influ kendal A, influ kendal B, and respi rator y syncy tial virus (RSV) , and not for the detec tion of any other virus es or patho gens. This test is only autho rized for the durat ion of the decla ratio n that circu mstan aimee exist justi fying the autho rizat ion of emerg ency use of in vitro diagn ostic tests for detec tion and/o r diagn osis of 2019- nCoV under secti on 564(b )(1) of Act, 21 U.S.C ??? 360bb b-3(b )(1), unles s the autho rizat ion is termi nated or revok ed soone r. Negat valeriano resul ts do not precl ude 2019- nCoV, influ kendal, and/o r RSV infec tion and shoul d not be used as the sole basis for treat ment or other patie nt manag ement decis ions. Negat valeriano resul ts must be combi jaz with clini francis obser vatio ns, patie nt histo ry, and epide miolo gical infor matio n. Testi ng perfo rmed at [facility] (CLIA #[id number]) on the [employer] id [employer] pert. Not Available [address] [place], [address] 03/30/2024 18:03:14 03/30/20 24 03/30/2024 COVID /FLU/ RSV PCR influenza A PCR Negati ve negati ve Not Available [address] [facility] [place], [address] 03/30/2024 18:03:14 03/30/20 24 03/30/2024 COVID /FLU/ RSV PCR influenza B PCR Negati ve negati ve Not Available [address] [place], [address] 03/30/2024 18:03:14 03/30/20 24 03/30/2024 COVID /FLU/ RSV PCR RSV PCR Negati ve negati ve Not Available [address] [place], [address] 03/30/2024 18:03:14 09/24/19 24 09/24/2023 trans -thor acic echoc ardio gram (TTE) (PROC ) Ulysses ahuja Name: Ambrosio Gibson ms in T Unit #: [id number] Loc: [facility] er: Nadine Galvan M.D. Accoun t #: [id number] Status : REG CLI Primar y Care Provid er: Marry Nicholson M.D. Date of Exam: 07/07 Sex: M Admiss ion Date: : 1970 Age: 53 ------ ------ --- APPROV ED REPORT ------ ------ -- EXAM: Compre hensiv e 2D, Dopple r, and color- flow Echoca rdiogr am Ulysses ahuja Locati on: Out-Pa tient Sonogr apher: Devi Dyson , RDCS (AE) Indica tions: Dyspne a Other Inform ation Study Qualit y: Adequa te. Techni akash limite d study due to body habitu s. Conclu gio Normal left ventri cular wall thickn ess and chambe r size.. Wall motion is normal . EF is 55-60% . there is stage II diasto lic dysfun ction Normal right ventri cular size and functi on Both atria are normal in size There is no struct ural or hemody namica lly signif icant valvul ar diseas e Right ventri cular systol ic pressu re could not be estima morgan Wall motion Left Ventri lorraine The left ventri lorraine is normal size. The overal l left ventri cular systol ic functi on appear s normal . There is normal left ventri cular wall thickn ess. There is normal LV segmen estuardo wall motion . Transm itral Dopple r flow patter n sugges ts pseudo normal izatio n. There is no ventri cular septal defect visual ized. LVEF is 57%. Right Ventri lorraine Right ventri lorraine is grossl y normal in size. Right ventri cular systol ic functi on is grossl y normal . Atria The left atrium size is normal . The right atrium size is normal . The intera trial septum is intact with no eviden ce for an atrial septal defect . Aortic Valve The aortic valve is normal in struct ure. There is no aortic valvul ar stenos is. No aortic regurg itatio n is presen t. Mitral Valve The mitral valve is normal in struct ure. No eviden ce of mitral valve stenos is. Trace mitral regurg itatio n. Tricus pid Valve The tricus pid valve is normal in struct ure. There is no tricus pid valve stenos is. Trace tricus pid regurg itatio n. Unable to assess PA pressu re. Pulmon ic Valve The pulmon renetta valve is normal in struct ure. There is no pulmon ic valvul ar stenos is. There is no pulmon ic valvul ar regurg itatio n. Great Vessel s The aortic root is normal in size. The ascend ing aorta is normal in size. Aortic arch is not well visual ized. IVC is normal in size and collap ses >50% with inspir ation. Perica rdium There is no perica rdial effusi on. 2D Dimens ions IVSD d PLAX 0.97 cm M: 0.6-1. 2 Ao Root d 3.27 cm M: 3.1 - 3.7 LVPW d PLAX 0.98 cm M: 0.6 - 1.2 Ao Asc Diam d 3.14 cm M: 2.6 - 3.4 LVID d PLAX 5.32 cm M: 4.2 - 5.8 LVDs 3.67 cm M: 2.5 - 4.0 LV EF Teichh olz 58.2 % FS 31.01 % LV EDV (Teich ) 136.4 mL LV ESV (Teich ) 56.9 mL M-Mode TAPSE 2.39 cm (M/F) >1.7 LA Volume LA Length A4C 4.9 cm LA Length A2C 4.2 cm LA Area A4C s 13.93 cm2 LA Area A2C s 11.28 cm2 LA Vol A4C A-L 33.63 mL LA Vol A2C A-L 25.61 mL LA Vol Biplan e A-L 31.6 mL LA Vol/BS A A4C A-L LA Vol/BS A A2C A-L LA Vol/BS A BP A-L 14.5 mL/m2 LA Vol A4C MOD 31.7 mL LA Vol A2C MOD 24.1 mL LA Vol BP MOD 29.7 mL RA Volume RA Area A4C 13.9 cm2 RA ESV A4C (A-L) 34.0mL RA Vol/BS A A4C A-L RA Length A4C 4.8 cm RA ESV A4C (MOD) 32.6mL LV Diasto logy MV E' medial 0.087 (>0.07 m/s) MV E Vmax 0.86 (0.4-1 .3 m/s) MV E/E' MED 9.80 (<14) MV A Vmax 0.85 (0.4-1 .3 m/s) MV E' latera l 0.097 (>0.1 m/s) E/A Ratio 1.0 MV E/E' LAT 8.81 (<14) MV E' Averag e 0.092 m/s MV E/E'(a verage ) 9.28 Aortic Valve AoV Vmax 1.29 m/s LVOT Vmax 1.25 m/s AoV Peak Grad 6.6 mmHg LVOT Peak Grad 6.2 mmHg AoV Area (Vmax) 3.42 cm2 LVOT VTI 0.257 m AoV VTI 0.264 m LVOT Mean Grad 3.6 mmHg AoV Mean Aaron. 0.87 m/s LVOT SV 90.54 mL AoV Mean Grad 3.5 mmHg LVOT Diam s 2.10 cm AoV Area (VTI) 3.43 cm2 Veloci ty Ratio 0.97 Mitral Valve MV DT 191 (160-2 40 msec) MV Vmax TIPS 0.76 m/s MV Mean Grad 1.2 (<2mmH g) MV VTI 0.260 m Pulmon renetta Valve PV Vmax 1.19 (0.5-1 .5 m/s) PV Peak Grad 5.6 mmHg PV Mean Aaron 0.86 m/s PV Mean Grad 3.3 mmHg Tricus pid Valve RA Pressu re 3.00 mmHg TV S' 0.14 m/s Davide d By: Nadine Galvan M.D. CC: ------ ------ ------ ------ ------ ------ ------ ------ ------ ------ ------ ------ - Dictat ed By: Marika Medina M.D. [id number] Transc ribed By: Marika Medina MD 1008 This is privil eged, confid ential inform ation intend ed only for the provid er named. Any use or distri bution by any person other than this provid er is strict ly prohib ited. If you receiv e this report in error, please notify us immedi ately at [phone] and return the origin al report to us at the addres s above. Thank- you. [email or web address] [facility] [address] [place], [address] 09/24/2023 20:07:46 03/30/20 24 01/02/2019 imagi ng/di agnos tic resul t No observ ation record ed. Not Available 03/30 02:35:43 03/30/20 24 08/06/2021 XR, knee No observ ation record ed. Not Available 03/30 02:38:25 03/30/20 24 05/17/2022 XR, chest No observ ation record ed. Not Available 03/30 02:38:27 03/30/20 24 10/19/2019 XR, chest No observ ation record ed. Not Available 03/30 02:38:28 03/30/20 24 10/23/2021 XR, foot No observ ation record ed. Not Available 03/30 02:38:38 03/30/20 24 03/17/2020 imagi ng/di agnos tic resul t No observ ation record ed. Not Available 03/30 02:38:46 03/30/20 24 10/19/2019 imagi ng/di agnos tic resul t No observ ation record ed. Not Available 03/30 02:38:47 03/30/20 24 08/30/2021 imagi ng/di nenaos tic resul t No observ ation record ed. Not Available 03/30 02:38:49 03/30/20 24 03/30/2024 x-ray imagi ng repor t Patien t Name: Ambrosio Gibson ms in T Unit #: [id number] Loc: ER Orderi ng Provid er: Fariba Gresham Accoun t #: [id number] Status : PRE ER Primar y Care Provid er: Marry Nicholson M.D. Date of Exam: Sex: M Admiss ion Date: : 1970 Age: 53 Exam(s ) XR CHEST 2V PA LATERA L EXAM: XR CHEST 2V PA LATERA L CLINIC AL HISTOR Y: shortn ess of breath , cough. TECHNI QUE: 2D digita l imagin g was perfor med. COMPAR KRIS: CR XR CHEST 2V PA LATERA L from 2019 FINDIN GS: 2 views: Heart size is normal . The medias tinum is not widene d. Lungs are clear. No infilt rates nor pleura l effusi ons. IMPRES GIO: No acute pulmon renetta findin gs. DATA REPOSI TORY: RADIAT ION DOSE DELIVE RED: Ordere d By: Fariba Gresham CC: ------ ------ ------ ------ ------ ------ ------ ------ ------ ------ ------ ------ - Dictat ed By: Keenan Cates M.D. 1807 Transc ribed By: Darryn MELENDEZ,Darshan radha 1807 This is privil eged, confid ential inform ation intend ed only for the provid er named. Any use or distri bution by any person other than this provid er is strict ly prohib ited. If you receiv e this report in error, please notify us immalfredo montoya at [phone] and return the origin al report to us at the addres s above. Thank- you. INTERFACE [facility] [address] , [place], [address] 03/30/2024 18:13:22 Result Notes None recorded. Problems Name Problem SNOMED Code Status Onset Date Resolution Date Notes Provider Name and Address Organization Details Recorded Time History of urinary stone 754547074 Active [address], [place], [address] , [facility] 4 19:50:11 Migraine 88712427 Active 2011 YURI mota, [facility] 4 10:02:13 Bilatera l hearing loss 37512537 Active 2011 hearing aides MD [address], [place], [address] , [facility] 4 20:06:54 Uncompli cated moderate persiste nt asthma 058311372 Active 2014 followed by pulmonol ogist MD [address], [place], [address] , [facility] 4 20:08:28 Obesity 529865855 Active 2014 high weight of 255. MD [address], [place], [address] , [facility] 4 20:05:55 Acute lymphade nitis 32070876 Completed 201509/19/2015 Problem Code: L04.9; Problem Code Type: ICD-10; Not Available [facility] 3 03:58:58 Arthralg ia of the ankle and/or foot 751546827 Completed 201503/07/2016 01/25/20 16 - Comments only - Marry Nicholson MD - With possible gout, I recommen d that we check a uric acid level. Problem Code: M25.571; Problem Code Type: ICD-10; Not Available [facility] 3 03:58:58 Adult health examinat ion Active 2015 YURI SUÁREZ [facility], [facility] 4 09:59:50 Gout 38243428 Active 2016 allergic reaction to allopuri nol, dry skin with probenec id, rheumato logist suggeste d aspirati on during flare. MARRY NICHOLSON MD [address], [place], [address] , [place] - [facility] 4 20:14:50 Periapic al abscess 895399550 Completed 201607/10/2017 Problem Code: K04.7; Problem Code Type: ICD-10; Not Available [facility] 3 03:58:58 Pain of right shoulder joint 31969508407 933506 Completed 201710/12/2017 07/26/19 18 - Comments only - Leonardo Ryder - Likely supraspi natus sprain or biceps tendinit is but incosist ent exam to determin e clearly. -Patient can rest shoulder over next two weeks -If no resoluti on of shoulder pain, we will refer him to physical therapy Problem Code: M25.511; Problem Code Type: ICD-10; Not Available [facility] 3 03:58:58 Pain in left arm 953799981 Completed 201709/11/2017 07/26/19 18 - Comments only - Leonardo Ryder - Likely musculos keletal given descript ion. Very unlikely to be cardiac related -Pateint explaine d signs of ACS and verbaliz ed understa nding -If he develops this same chest pain again, he will call this office for follow up -If patient develops any chest pain, especial ly over his sternum, that does not subside he acknowle dges that he will go to the emergenc y room Problem Code: M79.602; Problem Code Type: ICD-10; Not Available [facility] 3 03:58:58 Dyspnea 021430626 Completed 201811/17/2018 11/04/19 19 - Comments only - Marry Nicholson MD - He had an MPI a few years ago which showed slightly decrease d ejection fraction , will order echocard iogram to see what his EF truly is. This may be due to his asthma, he is on pretty maximal therapy. Problem Code: R06.09; Problem Code Type: ICD-10; Jessica Liu svetlana, [facility] 4 16:30:37 Cellulit is of left lower limb [id number] 841625 Completed 201806/17/2019 06/03/20 19 - Comments only - Marry Nicholson MD - Resolvin g, finish antibiot ics, call if erythema start spreadin g again or if he develops fevers or chills. Problem Code: L03.116; Problem Code Type: ICD-10; Not Available [facility] 3 03:58:59 Dysuria 25299222 Completed 201908/07/2019 Problem Code: R30.0; Problem Code Type: ICD-10; Not Available [facility] 3 03:58:59 Chronic rhinitis 36035527 Active 2019 YURI SUÁREZ [facility], [facility] 4 09:59:58 Cough 82217917 Completed 201910/27/2019 10/19/19 20 - Comments only - Nargis Robb Gold PATIENT'S LIBRARIAN - Consiste nt with asthma exacerba tion/acu te bronchit is, persiste nt x 1 month. CXR ordered, no abnormal ities. Discuess ed with PCP Dr Nicholson- pt maxed out on controll ed meds (will continue as prescrib ed with albutero l MDI PRN), ordered extended predniso ne taper (60 mg x 3 days, 40 mg x 3 days, 20 mg x 3 days, 10 mg x 3 days), neb machine, and Duoneb vials. Pt to f/u next week with Dr Nicholson via telemedi cine. Reviewed red flags requirin g emergenc y care. Pt comforta ble with plan of care. Problem Code: R05; Problem Code Type: ICD-10; Not Available [facility] 3 03:58:59 Bleeding from nose 845955751 Completed 201911/11/2019 10/28/19 20 - Comments only - Marry Nicholson MD - humidifi er, try vaseline in nose. Problem Code: R04.0; Problem Code Type: ICD-10; Not Available [facility] 3 03:58:59 Abscess of right lower limb 57331258540 392463 Completed 202001/11/2021 12/29/19 21 - Comments only - Marry Nicholson MD - Wick removed. Redresse d by nursing. Complete course of keflex, will check with [facility] if they did a culture. RTC if not improvin g or if worsenin g, would change to MRSA coverage with Bactrim. Problem Code: L02.415; Problem Code Type: ICD-10; Not Available [facility] 3 03:58:59 Low back pain 317879490 Active 2021 YURI SUÁREZ [facility] [place] [facility] 4 10:01:51 Otalgia of left ear 5779371962 Completed 202109/18/2021 09/11/19 22 - Comments only - Marry Nicholson MD - resolved with antibiot ics. Problem Code: H92.02; Problem Code Type: ICD-10; Not Available [facility] 3 03:59:00 Cellulit is of right lower limb 86418770348 017156 Completed 202102/28/2022 02/22/20 22 - Comments only - Marry Nicholson MD - improvin g Well healing lacerati on, no signs of infectio n, complete course of antbioti cs. Problem Code: L03.115; Problem Code Type: ICD-10; Not Available [facility] 3 03:59:00 Acute upper respirat ory infectio n 83759152 Completed 202104/22/2022 04/12/20 22 - Comments only - Verna Galicia PILE DRIVING SUPERVISOR - patient' s lung sounds indicate not only asthma exacerba tion but do sound consolid ated in left lower lobe. cough is producti ve. transpor tation issue with getting xray will start him on predniso ne 40mg daily x 5 days and azithrom ycin x 5 days. Problem Code: J06.9; Problem Code Type: ICD-10; Not Available [facility] 3 03:59:00 Dyspnea 671150546 Completed 202104/22/2022 04/12/20 22 - Comments only - Verna Galicia PILE DRIVING SUPERVISOR - see above Problem Code: R06.02; Problem Code Type: ICD-10; Jessica mota, [facility] 4 16:30:37 Acute pharyngi tis 080773713 Completed 202106/08/2022 Problem Code: J02.9; Problem Code Type: ICD-10; Not Available [facility] 3 03:59:00 Pneumoni a caused by respirat ory syncytia l virus 381835039 Completed 202106/08/2022 Problem Code: J12.1; Problem Code Type: ICD-10; Not Available [facility] 3 03:59:00 Obstruct valeriano sleep apnea syndrome 18444470 Active 2022 REM AHI [address] [facility] [address], [place], [address] , [facility] 4 19:49:52 Abscess of skin and/or subcutan eous tissue 75917914 Completed 201903/22/2020 Problem Code: L02.91; Problem Code Type: ICD-10; Not Available [facility] 3 03:59:01 Headache 98922800 Completed 201104/10/2023 Not Available [facility] 3 03:59:01 Cellulit is of left upper limb 50157757641 652406 Completed 201711/03/2018 Problem Code: L03.114; Problem Code Type: ICD-10; Not Available [facility] 3 03:59:01 Uncompli cated mild persiste nt asthma 904966607 Completed 201404/10/2023 01/25/20 16 - Comments only - Marry Nicholson MD - see patient instruct ions below. 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 Repeat uric acid, referral to rheumato logy. Problem Code: M1A.0790 ; Problem Code Type: ICD-10; Not Available [facility] 3 03:59:01 Cough 02474315 Completed 202105/11/2022 Problem Code: R05.8; Problem Code Type: ICD-10; Not Available [facility] 3 03:59:01 Abscess of right axilla 54743026900 272002 Completed 202002/21/2022 Problem Code: L02.411; Problem Code Type: ICD-10; Not Available [facility] 3 03:59:02 Abscess of limb 313446606 Completed 202003/22/2021 Problem Code: L02.419; Problem Code Type: ICD-10; Not Available [facility] 3 03:59:02 Tobacco user 204117079 Completed 201404/10/2023 08/05/19 16 - Comments only - Marry Nicholson MD - He continue s to chew tobacco, is not interest ed in counseli at this time. Problem Code: Z72.0; Problem Code Type: ICD-10; Not Available [facility] 3 03:59:02 Exacerba tion of moderate persiste nt asthma 586142497 Completed 202110/08/2022 Problem Code: J45.41; Problem Code Type: ICD-10; Not Available [facility] 3 03:59:02 Malaise 884055015 Completed 201606/03/2019 Problem Code: R53.81; Problem Code Type: ICD-10; Not Available [facility] 3 03:59:02 Cough 08309801 Completed 201601/23/2017 Problem Code: R05; Problem Code Type: ICD-10; Not Available [facility] 3 03:59:02 Cellulit is of right upper limb 22608671147 850921 Completed 202002/21/2022 Problem Code: L03.113; Problem Code Type: ICD-10; Not Available [facility] 3 03:59:03 Asthma 107225377 Completed 201102/02/2015 Not Available [facility] 3 03:59:03 Diabetes mellitus screenin g Completed 202110/08/2022 Problem Code: Z13.1; Problem Code Type: ICD-10; Not Available [facility] 3 03:59:03 Snoring 67211567 Completed 202110/08/2022 Problem Code: R06.83; Problem Code Type: ICD-10; Not Available [facility] 3 03:59:03 Pain in left foot 13162370426 9107 Completed 202110/08/2022 Problem Code: M79.672; Problem Code Type: ICD-10; Not Available [facility] 3 03:59:03 Kidney stone 97670014 Completed 201104/10/2023 Not Available [facility] 3 03:59:04 Hyperlip idemia screenin g Completed 202110/08/2022 Problem Code: Z13.220; Problem Code Type: ICD-10; Not Available [facility] 3 03:59:04 Effusion of joint of left knee 03877259433 9105 Completed 202110/08/2022 Problem Code: M25.462; Problem Code Type: ICD-10; Not Available [facility] 3 03:59:04 Hearing loss 28325560 Completed 201104/10/2023 Not Available [facility] 3 03:59:04 Hypertro phic conditio n of skin 89751354 Completed 202010/08/2022 Problem Code: L91.8; Problem Code Type: ICD-10; Not Available [facility] 3 03:59:04 Malik l earache 745948946 Completed 201806/03/2019 Problem Code: H92.03; Problem Code Type: ICD-10; Not Available [facility] 3 03:59:05 Screenin g for malignan t neoplasm of colon Completed 202210/20/[address], [place] [address] , [facility] 4 19:50:02 Essentia l hyperten gio 46687406 Active 2022 YURI mota, [facility] 4 10:00:08 Excessiv e thirst 89522451 Completed 202210/20/[address], [place] [address] , [facility] 4 20:30:09 Dyspnea on exertion 53993522 Active 2022: overnigh t oximetry normal, ECHO stage II diastoli c dysfunct ion MD [address], [place] [address] , [facility] 4 20:11:29 Ex-smoke r 1248655 Active [address], [place] [address] , [facility] 4 20:06:25 Diastoli c dysfunct ion 7888836 Active 2023 by ECHO 09/2023: Transmit ral Doppler flow pattern suggests pseudono rmalizat ion. MD [address], [place], [address] , [facility] [facility] 4 20:28:38 Problem Notes None recorded. Procedures Surgical History None recorded. Imaging Results Imaging Date Name Status LastModified by Organization Details LastModified Time 09/24/2023 trans-thoracic echocardiogram (TTE) (PROC) completed [email or web address] [place] [id number] [facility] [place], [address] 09/24/2023 20:07:46 01/02/2019 imaging/diagnostic result completed Information not available 03/30/2024 02:35:43 08/06/2021 XR, knee completed Information no t available 03/30/2024 02:38:25 05/17/2022 XR, chest completed Information no t available 03/30/2024 02:38:27 10/19/2019 XR, chest completed Information no t available 03/30/2024 02:38:28 10/23/2021 XR, foot completed Information no t available 03/30/2024 02:38:38 03/17/2020 imaging/diagnostic result completed Information not available 03/30/2024 02:38:46 10/19/2019 imaging/diagnostic result completed Information not available 03/30/2024 02:38:47 08/30/2021 imaging/diagnostic result completed Information not available 03/30/2024 02:38:49 03/30/2024 x-ray imaging report completed INTERFACE [address] [place], [address] 03/30/2024 18:13:22 Procedure Notes None recorded. Medical Equipment None Reported. Allergies Allergen ID Allergen Name Allergen Category Reaction Reaction Severity Criticality Documentation Date Start Date Code Code System Note Provider Name and Address Organization Details Recorded Time [address]335 allopurin ol medicatio n hives moderate Not available 05/24/20232018 519 RxNorm hives Not Available [facility] 16:26:19 Medications Name Sig Start Date Stop Date Status Note LastModified by Organization Details LastModified Time Prescript ion - Renewal active monteluk ast 10 mg tablet[R xRsp] Not Available Not Available Not Available budesonid e 32 mcg/actua tion nasal spray 2 sprays each nostril daily for 2 weeks, then 1 spray each nostril daily 03/22 completed Not Available Not Available Not Available prednison e 10 mg tablet 1 tab PO daily x 5 days after completi ng 20 mg taper, and d/c 10/21 completed Not Available Not Available Not Available ipratropi um 0.5 mg-albute rol 3 mg (2.5 mg base)/3 mL nebulizat ion soln Inhale 1 ampul using nebulize r every four to six hours as needed 2021 active chp Not Available Not Available Not Avai lable clindamyc in HCl 300 mg capsule Take 1 capsule by mouth twice a day take with 150 mg cap for a total of 450 twice a day 06/29 completed Take 450 mg daily for 7 days Not Available Not Available Not Available albuterol sulfate 2.5 mg/3 mL (0.083 %) solution for nebulizat ion INHALE 1 VIAL VIA NEBULIZE R FOUR TIMES DAILY NEEDED FOR SHORTNES S OF BREATH/W HEEZE active Not Available Not Available No t Available Vitamin C 500 mg tablet take 1 tab daily 10/20 completed Not Available Not Available Not Available azithromy pilo 250 mg tablet Take 2 tablet by mouth single dose 2 tabs today, then take 1 tablet by mouth daily for the next 4 days. 04/17 completed Not Available Not Available Not Available Flonase 50 mcg/DOSE nasal inhaler 2 SPRAY daily 2012 active Not Available Not Available Not Avai lable Nicoderm CQ 21 mg/24 hr daily transderm al patch 1 patch Daily 08/05 completed Not Available Not Available Not Available Medrol (Quintin) 4 mg tablets in a dose pack 1 TAB DIRECTED 03/02 completed Not Available Not Available Not Available prednison e 20 mg tablet TAKE 2 TABLETS BY MOUTH DAILY FOR 5 DAYS THEN TAKE 1 TABLET BY MOUTH DAILY FOR 5 DAYS active Not Available Not Available No t Available cephalexi n 250 mg tablet Take 1 tablet by mouth twice a day 01/25 completed Not Available Not Available Not Available rizatript an 10 mg tablet Take 1 tablet by mouth as directed as needed Take at first onset of headache . May repeat in 2 hours. Max of 2 tablets per 24 hours 2018 active Not Available Not Available Not Avkatey carcamo Jeff Low Dose Aspirin 81 mg tablet,de layed release Take 1 tablet by mouth once a day 12/03 completed Not Available Not Available Not Available Flonase 50 mcg/actua tion nasal spray,connor pension 2 puffs each nostril once daily 08/05 completed Not Available Not Available Not Available allopurin ol 100 mg tablet Take 1-3 tab by mouth daily, per instruct ions 11/03 completed Not Available Not Available Not Available Imitrex 50 mg tablet 1 tab daily 2012 active Not Available Not Available Not Merari carcamo Nicoderm CQ 14 mg/24 hr daily transderm al patch 1 patch Daily 08/05 completed Not Available Not Available Not Available benzonata te 100 mg capsule Take 1 capsule by mouth every eight hours as needed 04/12 completed Not Available Not Available Not Available cephalexi n 500 mg capsule 1 capsule by mouth every six hours 02/24 completed Not Available Not Available Not Available Advair Diskus 500 mcg-50 mcg/dose powder for inhalatio n 1 PUFF TWICE DAILY 10/13 completed Not Available Not Available Not Available cephalexi n 500 mg tablet Take 1 tablet by mouth four times a day 01/28 completed Not Available Not Available Not Available zinc gluconate 50 mg tablet take 1 tab daily 10/20 completed Not Available Not Available Not Available monteluka st 10 mg tablet TAKE 1 TABLET BY MOUTH DAILY active Not Available Not Available No t Available aspirin 81 mg tablet 1 tab daily 2012 active Not Available Not Available Not Avkatey carcamo mupirocin 2 % topical ointment Apply 1 a small amount to affected area twice a day Apply to both nostrils twice a day for 10 days 04/29 completed Not Available Not Available Not Available Imitrex 100 mg tablet 1 tab as needed prn Headache . May repeat x1 after 2 hr. Do not exceed 200mg in a 24 hrs period. 05/07 completed Not Available Not Available Not Available ibuprofen 600 mg tablet Take 1 tab by mouth twice daily while starting new gout medicati on Dx: J45.40 2017 active Not Available Not Available Not Avai lable albuterol sulfate HFA 90 mcg/actua tion aerosol inhaler INHALE 2 PUFFS BY MOUTH FOUR TIMES DAILY NEEDED FOR SHORTNES S OF BREATH OR WHEEZING active Not Available Not Available No t Available doxycycli ne hyclate 100 mg tablet Take 1 tab by mouth twice daily 10/10 completed Not Available Not Available Not Available chlorhexi dine gluconate 4 % topical liquid Apply 1 as directed to skin once a day Wash daily from head to toe in shower daily for 10 days 04/29 completed Not Available Not Available Not Available loratadin e 10 mg tablet Take 1 tablet by mouth once a day 03/22 completed Not Available Not Available Not Available ipratropi um bromide 0.02 % solution for inhalatio n mix with albutero l neb, inhale every 8 hours as needed 12/03 completed Not Available Not Available Not Available probeneci d 500 mg tablet Take 1 tablet by mouth twice daily. 03/16 completed Not Available Not Available Not Available Bactrim DS 800 mg-160 mg tablet Take 1 tablet by mouth twice a day 5 extra days 07/24 completed Not Available Not Available Not Available Benadryl Allergy 25 mg tablet Take 1 tablet every six hours as needed 03/22 completed Not Available Not Available Not Available Nicoderm CQ 7 mg/24 hr daily transderm al patch 1 patch Daily 08/05 completed Not Available Not Available Not Available Florastor 250 mg capsule Take 1 capsule twice a day 03/22 completed Not Available Not Available Not Available BreatheRi te MDI Spacer Use spacer with inhaler 10/08 completed Not Available Not Available Not Available albuterol 2PUFF [email or web address] 08/25 completed Not Available Not Available Not Available Nebulizer Dx: J45.40, R05 10/27 completed Not Available Not Available Not Available Albuterol Sulfate HFA 2PUFF [id number] 04/12 completed Not Available Not Available Not Available ProAir HFA 2PUFF [email or web address] 08/23 completed Not Available Not Available Not Available budesonid e-formote rol HFA 160 mcg-4.5 mcg/actua tion aerosol inhaler INHALE 2 PUFFS BY MOUTH TWICE DAILY 12/29 completed Not Available Not Available Not Available Bepreve 1.5 % eye drops Apply 1 drop into both eyes twice a day 12/14 completed Not Available Not Available Not Available Dulera 200 mcg-5 mcg/actua tion HFA aerosol inhaler Inhale 2 puff using inhaler twice a day 10/19 completed changed to budesoni de-formo terol Not Available Not Available Not Available Dulera 100 mcg-5 mcg/actua tion HFA aerosol inhaler Inhale 2 puffs twice a day by inhalati on route. active continue per pulmonol ogy 12/27/23 Not Available Not Available Not Available Incruse Ellipta 62.5 mcg/actua tion powder for inhalatio n Inhale 1 puff by mouth once a day 12/03 completed Not Available Not Available Not Available Pataday Twice Daily Relief 0.1 % eye drops Apply 1 drop into both eyes twice a day 03/24 completed Not Available Not Available Not Available Paxlovid 300 mg (150 mg x 2)-100 mg tablets in a dose pack Take 3 tablet by mouth twice a day 07/10 completed Not Available Not Available Not Available Vitals Date Recorded Body height Body mass index (BMI) Body weight Body temperature Oxygen saturation Oxygen saturation in Arterial blood by Pulse oximetry Heart rate Respiratory rate Systolic blood pressure Diastolic blood pressure Provider Name and Address Organization Details Last Updated DateTime 4 170.94 cm 41.4 kg/m2 993220. 16 g 98 [degF] 97 % 97 % 88 /min 18 /min 124 mm[Hg] 80 mm[Hg] RAVINDRA LINDA LPN [place] [facility]. 4 10:04:22 Social History Question Answer Notes LastModified by Organizat ion Details LastModified Time Tobacco Smoking Status Never Smoker RAVINDRA LINDA LPN [facility], [place] [facility]. 10/21/2023 10:13:36 Do You Have An Advance Directive? No Information n ot available 10/21/2023 Do You Or Have You Ever Used E-cigarettes Or Vape? Never Used Electronic Cigarettes Information not available 10/21/2023 Date Of Most Recent HSA 10/21/2023 Information not available 10/21/2023 Would You Say That, In General, Your Health Is Good Information not available 10/21/2023 How Often Does Anyone, Including Family, Physically Hurt You? Never Information not available 10/21/2023 How Often Does Anyone, Including Family, Insult Or Talk Down To You? Never Information no t available 10/21/2023 How Often Does Anyone, Including Family, Threaten You With Harm? Never Information not available 10/21/2023 How Often Does Anyone, Including Family, Scream Or Curse At You? Never Information not available 10/21/2023 Within The Past 12 Months, You Worried That Your Food Would Run Out Before You Got Money To Buy More. Never True Information n ot available 10/21/2023 Within The Past 12 Months, The Food You Bought Just Didn't Last And You Didn't Have Money To Get More. Never True Information n ot available 10/21/2023 How Hard Is It For You To Pay For The Very Basics Like Food, Housing, Medical Care, And Heating? Would You Say It Is: Very Hard Information not available 10/21/2023 In The Past 12 Months, Has Lack Of Reliable Transportation Kept You From Medical Appointments, Meetings, Work Or From Getting Things Needed For Daily Living? No Information not available 10/21/2023 What Is Your Housing Situation Today? I Have Housing. Information not available 10/21/2023 How Often In The Past Year Have You Used Marijuana (including Smoking, Vaping, Dabbing, Or Edibles)? Never Information not available 10/21/2023 How Often In The Past Year Have You Used Prescription Medications That Were Not Prescribed To You? Never Information n ot available 10/21/2023 How Often In The Past Year Have You Taken Your Own Prescription Medication More Than The Way It Was Prescribed Or For Different Reasons Than Its Intended Purpose? Never Information no t available 10/21/2023 How Often In The Past Year Have You Used Other Drugs (for Example, Heroin, Cocaine, Meth, Salvia, Inhalants)? Never Information not available 10/21/2023 Have You Ever Used IV Drugs? No Information not available 10/21/2023 What Matters Most To You? Elizabeth Information not available 10/21/2023 During The Past Four Weeks Has Your Physical And Emotional Health Limited Your Social Activities With Family And Friends, Neighbors, Or Groups? Not At All Information not available 10/21/2023 During The Past Four Weeks, Was Someone Available To Help You If You Needed And Wanted Help? (For Example, If You [place] Very Nervous, Lonely, Or Blue; Got Sick And Had To Stay In Bed; Needed Someone To Talk To; Needed Help With Daily Chores; Or Needed Help Just Taking Care Of Yourself.) No- Not At All Information n ot available 10/21/2023 During The Past Four Weeks, What Was The Hardest Physical Activity You Could Do For At Least 2 Minutes? Moderate Information not available 10/21/2023 Can You Get To Places Out Of Walking Distance Without Help? (For Example, Can You Travel Alone On Buses Or Taxis, Or Drive Your Own Car?) Yes Information not available 10/21/2023 Can You Go Shopping For Groceries Or Clothes Without Someone? s Help? Yes Information not available 10/21/2023 Can You Prepare Your Own Meals? Yes Information not available 10/21/2023 Can You Do Your Housework Without Help? Yes Information not available 10/21/2023 Can You Handle Your Own Money Without Help? Yes Information not available 10/21/2023 Are You Having Difficulties Driving Your Car? No Information no t available 10/21/2023 Do You Always Fasten Your Seat Belt When You Are In A Car? No Information not available 10/21/2023 How Often During The Past Four Weeks Have You Been Bothered By Any Of The Following Problems? Falling Or Dizzy When Standing Up? Seldom Information not available 10/21/2023 Sexual Problems? Never Informat ion not available 10/21/2023 Trouble Eating Well? Never Information not available 10/21/2023 Teeth Or Denture Problems? Never Information not available 10/21/2023 Problems Using The Telephone? Never Information not available 10/21/2023 Tiredness Or Fatigue? Never Information not available 10/21/2023 Have You Had 2 Or More Falls Or Sustained An Injury With A Fall In The Last Year? No Information no t available 10/21/2023 Do You Have Difficulty With Walking Or Balance? No Information not available 10/21/2023 Do You Currently Use A Hearing Device? No Information not available 10/21/2023 Do You Currently Have Any Trouble With Your Vision? No Information no t available 10/21/2023 Do You Exercise For About 20 Minutes Three Or More Days A Week? No- I Usually Do Not Exercise Much Information not available 10/21/2023 Are There Any Safety Concerns In Your Home (see Attached CDC Pamphlet)? No Information not available 10/21/2023 How Often Do You Have Trouble Taking Medicines The Way You Have Been Told To Take Them? Sometimes I Take Them As Prescribed Information not available 10/21/2023 How Confident Are You That You Can Control And Manage Most Of Your Health Problems? I Do Not Have Any Health Problems Information not available 10/21/2023 Do You Currently Have Any Difficulty With Your Hearing? No Information not available 10/21/2023 Date Of Most Recent SBINS 10/21/2023 Information not available 10/21/2023 What Was The Date Of Your Most Recent Tobacco Screening? 10/21/2023 Information not available 10/21/2023 Do You Or Have You Ever Used Smokeless Tobacco? Former Smokeless Tobacco User Information not available 10/21/2023 Has Tobacco Cessation Counseling Been Provided? Yes Information not available 10/21/2023 On What Date Was Tobacco Cessation Counseling Provided? 10/21/2023 Information not available 10/21/2023 Do You Or Have You Ever Used Any Other Forms Of Tobacco Or Nicotine? Yes Information not available 10/21/2023 Sex: Male Functional Status None recorded. Mental Status None recorded. Family History Relationship Description Onset Age of this Age Resolved Age Notes LastModified by Organization Details LastModified Time Father Family history of Hypertension [email or web address] Not available 04/2023 03:50:18 Notes:*Problem: Mother: Dece ased 30's Murdered Father: Alive 72, HTN, hyperlipidemia , mental illness Brothers: 1 : mental illness Children: 4 Paternal Grandfather Alcoholism: Medical History No medical history recorded. Immunizations Vaccine Type Date Status Provider Name and Address Organization Details Recorded Time Tdap 11/24/2012 completed Not Available [facility] 04:09:30 Tdap 12/28/2020 completed Not Available [facility] 04:09:30 Influenza, split virus, quadrivalent, PF 03/22/2020 completed Not Available [facility] 05/24/2023 04:09:30 Influenza, split virus, quadrivalent, PF 04/03/2019 completed Not Available [facility] 05/24/2023 04:09:30 Influenza, split virus, quadrivalent, PF 04/21/2021 completed Not Available [facility] 05/24/2023 04:09:30 Influenza, split virus, quadrivalent, PF 06/29/2022 completed Not Available [facility] 05/24/2023 04:09:30 Influenza, split virus, quadrivalent, preservative 03/29/2017 completed Not Available [facility] 05/24/2023 04:09:31 Influenza, split virus, quadrivalent, preservative 05/05/2018 completed Not Available [facility] 05/24/2023 04:09:31 zoster recombinant 02/21/[address] [facility] 05/24/2023 04:09:31 zoster recombinant 06/29/[address] [facility] 05/24/2023 04:09:31 COVID-19, mRNA, LNP-S, PF, 100 mcg/0.5mL dose or 50 mcg/0.25mL dose 11/22/2021 completed Not Available [facility] 05/24/2023 04:09:31 COVID-19, mRNA, LNP-S, PF, 100 mcg/0.5mL dose or 50 mcg/0.25mL dose 04/19/2021 completed Not Available [facility] 05/24/2023 04:09:31 COVID-19, mRNA, LNP-S, PF, 100 mcg/0.5mL dose or 50 mcg/0.25mL dose 05/17/2021 completed Not Available [facility] 05/24/2023 04:09:31 Pneumococcal conjugate PCV20, polysaccharide [id number] conjugate, adjuvant, PF 06/29/2022 completed Not Available [facility] 05/24/2023 04:09:32 pneumococcal polysaccharide PPV23 02/02/2015 completed Not Available [facility] 2022 04:09:32 influenza, unspecified formulation 04/12/2014 completed Not Available [facility] 05/24/2023 04:09:32 Influenza, split virus, quadrivalent, PF 04/12/2023 completed Not Available [facility] 07/26/2023 05:31:09 COVID-19, mRNA, LNP-S, PF, 50 mcg/0.5 mL 05/27/2023 completed BRUNO SUTTON, [place] [facility]. 10/21/2023 10:33:25 Past Encounters Encounter ID Performer Location Encounter Start Date Encounter Closed Date Diagnosis/Indication Diagnosis SNOMED-CT Code Diagnosis ICD10 Code [id number] MARRY NICHOLSON MD [address] [place] [address] 10/21/2023 09:24:32 10/21/2023 11:14:38 Adult health examination 893029248 Z00.00 Uncomplica morgan moderate persistent asthma 439825701 J45.40 Obesity 608625102 E66.9 Essential hypertension 62746343 I10 Diastolic dysfunction 35 04777 I51.9 Gout 34633323 M10.9 Health Concerns Section Related Observation LastModified by Organization Detai ls LastModified Time None Recorded Concern Status LastModified by Organization Details LastModified Time None Recorded Advance Directives Directive N: Payers Encounter Date Sequence Insurance Name Policy Number Policy Mcintosh Covered Member ID Mcintosh Member ID Guarantor Name 10/21/2023 2 [facility] (MEDICAID) Ravindra De Leon [id number] Ravindra Ahuja Moises 10/21/2023 1 [place] [employer] Ravindra De Leon [id number] Ravindra Ahuja Moises Notes Date Note Type Note Provider Name and Address Organization Details Recorded Time 10/21/2023 text/html HPI Notes: Medic are Wellness Visit pain and opiate assessment Reported by patient. Notes: Takes no pain medications. Here for Medicare Wellness visit. SBINS and Medicare Wellness Self Assessment form were reviewed. The following chronic and or new problems were addressed: Money is the biggest concern. He does have a working car now. He was not able to afford his asthma controller medications due to cost, but did fill it recently ROS left knee gets hot and lópez. Pain at times. Denies Chest pain, RICO or visual issues. SOB is d/t asthma. slight bl edema that he has never noticed. asthma-Patient saw [facility] recently, got new rx for generic symbicort and was able to fill it for just $1-$2. Gets his albuterol through [facility]. Had been without for a few months. Updrafts help a bit. Also gets some albuterol for a nebulizer machine from [facility]. BURROWS: HFpEF/diastolic dysfunction- based on recent ECHO with Transmitral Doppler flow pattern suggests pseudo normalization. Could consider empagliflozin 10 mg daily or dapagliflozin 10 mg daily though medication costs have been problematic. HTN: BP is borderline, he has never been on medication for hypertension GOUT: none recently, usually toes or ankles. MIGRAINE- if he gets a headache he just takes ibuprofen 800 mg and that helps. Occurs every 6 weeks or so, does not need or take rx medication MARRY NICHOLSON MD [address], [place], [address], [place] [facility]. 10/21/2023 13:02:15
--- OUTSIDE RECORDS SUMMARY | 2024-03-30 18:33 | XMS_ITS | Encounter Summary ---
Author Organization [facility] Address [address] [place] [address] Care Team Providers Care Air Tool Operator Name Role Phone Unavailable Primary Care Provider Unavailabl e Encounter Details Date Type Department Care Team (Latest Contact Info) Description 08/09/2005 12:27 EST Hospital Encounter [address] [address] Smith Smith MD [address] [place] [phone] Discharge Disposition: Auto Discharge Social History Tobacco Use Types Packs/Day Years Used Date Smoking Tobacco: Never Assessed Sex and Gender Information Value Date Recorded Sex Assigned at Not on file Gender Identity Male 09/29/2019 9:10 EDT Sexual Orientation Not on file documented as of this encounter Discharge Disposition Disposition Code Departure Means Destination Auto Discharge documented in this encounter Plan of Treatment Not on file documented as of this encounter Procedures Procedure Name Priority Date/Time Associated Diagnosis Comments FINGER 2 OR MORE VIEWS 08/09/2005 13:20 EST documented in this encounter Results * FINGER 2 OR MORE VIEWS (08/09/2005 13:20 EST) Anatomical Region Laterality Modality Other 08/09/2005 13:2 0 EST Narrative 02/11/2009 5:07 EDT OA LEFT LONG FINGER DIP 2 VIEWS OF THE LEFT MIDDLE FINGER COMPARISON: ?? 07/24/05. There is now a screw across the DIP joint. ??The alignment is near-anatomic, and no hardware failure is seen. D: ??08/09/05 T: ??08/10/05 /kashif Procedure Note Kareem Bowden MD - 02/11/2009 OA LEFT LONG FINGER DIP 2 VIEWS OF THE LEFT MIDDLE FINGER COMPARISON: 07/24/05. There is now a screw across the DIP joint. The alignment is near-anatomic, and no hardware failure is seen. /kashif Smith Smith MD IMG DIAGNOSTIC IMAGI NG ORDERABLES documented in this encounter Visit Diagnoses Not on filedocumented in this encounter
--- OUTSIDE RECORDS SUMMARY | 2024-03-30 18:33 | XMS_ITS | Encounter Summary ---
Author Organization [facility] Address [address] [place] [address] Care Team Providers Care Medical Assistant Secretary Name Role Phone Unavailable Primary Care Provider Unavailabl e Encounter Details Date Type Department Care Team (Late st Contact Info) Description 08/23/2005 Office Visit [facility] [address] [place] [address] Neal Guy MD [address] [place] [address] [phone] Social History Tobacco Use Types Packs/Day Years Used Date Smoking Tobacco: Never Assessed Sex and Gender Information Value Date Recorded Sex Assigned at Not on file Gender Identity Male 09/29/2019 9:10 EDT Sexual Orientation Not on file documented as of this encounter Progress Notes * Rikki, Conv Pick Remover - 09/14/20092016 EST Department - Physician Summary Registration Date/Time: 08/23/2005 19:08 Arrived- By ambulance. Historian - patient. HISTORY OF PRESENT ILLNESS Chief complaint-; SWELLING. This started several weeks ago (pt sent from outside ed [place] for eval of digit that recently had K wire placed surgically (6 wks prior). pt notes no fvr, no increased pain, noincreased swelling in recent weeks. he notes perhaps mild increased redness and slight drainagefrom a dorsal eschar/ pt notes no pain with rom. pt was started on tid keflex by clinic in his hometown). Severity is described as being mild. Symptoms located in the area of the left hand. He has had redness and swelling. No chest pain, difficulty breathing, sensory loss or motor loss. Patient denies an injury. The patient has had similar symptoms previously. The patient was seen recently in the emergency department and office. REVIEW OF SYSTEMS No fever, chills, headache, depression or skin rash. No nausea or vomiting. PAST HISTORY See nurses notes. Medications: See nurses notes. Allergies: See nurses notes. SOCIAL HISTORY No alcohol use or drug use. Is an out of state resident. ADDITIONAL NOTES The nursing notes have been reviewed. PHYSICAL EXAM Appearance: Alert. Oriented X3. No acute distress. Vital Signs: Have been reviewed - Eyes: Pupils equal, round and reactive to light. Eyes normal inspection. ENT: Pharynx normal. Neck: Normal inspection. Neck supple. CVS: Normal heart rate and rhythm. Heart sounds normal. Respiratory: No respiratory distress. Breath sounds normal. Skin: Skin intact. Normal skin color. Skin warm. Extremities: Upper extremity capillary refill not prolonged. Tip of left middle finger: mild erythema and moderate swelling. No tenderness or laceration of tip of left middle finger. No left middle fingernail avulsion. Flexor and extensor tendon funxn nl without any pain with palp of these or with prom/arom. no drainage notedfrom small eschar distal to dip on extensor surface of digit. no fluctuance noted. digit nt to palp but moderately swollen past dip. he states this is chronic. Neuro: OrientedX 3. No motor deficit. LABS, X-RAYS, AND EKG Rt UE Digits X-ray: K wire in place. no signs of osteo noted. no sub q gas. (outside film). The right upper digits X-rays were independently viewed by me and interpreted contemporaneously by me. PROGRESS AND PROCEDURES E.D. Course: Pt may or may not have infxn in digit. his hx certainly does not appear to indicate much in the way of infxn sxs, and his exam is notable for redness and swelling that is not acute. his cpr is unremarkable (outside hospital). ortho agrees, will increase keflex to qid so that pt is being tx'd with appropriate dose and will dc home to see hand for fu in next 2 weeks. . Discussed case with on-call resident, Dr. Mcintyre/ alondra . Reviewed test results and need for additional work-up. Agreed upon treatment plan. Physician will see patient in ED. Call placed to doctor. Patient counseled in person regarding the patient's stable condition, diagnosis and need for follow-up.Additional history sought. Old ED records reviewed. Disposition: Discharged home. Condition: good. Discharged home in good condition. CLINICAL IMPRESSION Cellulitis (possible). INSTRUCTIONS Take antibiotics as prescirbed by our orthopedic surgeons. Continue current medications. Warnings: Further evaluation is necessary. It is very important to follow up with a physician. GENERAL WARNINGS: Return or contact your physician immediately if your condition worsens or changesunexpectedly, if not improving as expected, or if other problems arise. Specifically return if painor fever worsens. Follow-up: AMEE VICENTE MD, HAND SURGERY, , [facility], [address] [place] [address].Follow up even if well. Next available appointment. (Electronically signed by Neal Guy M.D. 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 Acuity: LEVEL 4. BP: 164 / 101. HR: 96. RR: 14. Temp: 36.3 C (oral). Alert. No acute distress. --1932 Daniel Lewis R.N. Medications Cephalexin. ( CRESTOR). ( OMACOR). Tessalon Perles. --1932 Daniel Lewis R.N. Allergies No known drug allergies. --1932 Daniel Lewis R.N. History Chief Complaint: SWELLING and SKIN LESION ( LT 3rd FINGER). Onset- about 2 days ago. Pain level now: 0/10. ( MOE OF [facility] REFERING PT TO RADHA CASTILLO FOR PTC/O OSTEOMYLELITIS ON LEFT 3RD DIGIT, NDKA, VITALS: P 99 BP 136/83, R 18, TEMP 97.9, 20 GA IV ESTABLISHED ON RIGHTHAND, MEDS: ANTIBIOTICS). The patient has had fever. Treatment CASTER INVESTMENT CASTING:Recently seen in a medical facility; treatment - antibiotic. ( ANCEF 2gm IV). EMS treatment CASTER INVESTMENT CASTING verbally communicated. See EMS report. IV access #1 obtained. Right hand, 20g angiocath, saline lock placed. BP: 120 / 88. HR: 96. RR: 15. PAST HX: Asthma. Left upper extremity fracture repair ( 3rd FINGER REPAIR). SOCIAL HX: History of chewing tobacco use. Nonsmoker. No alcohol use or drug use. No report of abuse. [facility] Is an [place] of [place] resident. The patient lives with spouse. Arrived by EMS and walking from another hospital ([facility]). --1932 Daniel Lewis R.N. Historian: patient and EMS. --1932 Daniel Lewis R.N. Treatment CASTER INVESTMENT CASTING: PAST HX: SOCIAL HX. PHYSICAL ASSESSMENT Alert. Appears in no acute distress. Oriented X 3. Respirations not labored. Erythema with tenderness, warmth and swelling (LT 3rd FINGER). --1933 Daniel Lewis R.N. Ambulatory to room. --1933 Daniel Lewis R.N. NURSING PROGRESS NOTES Progress Head of bed elevated. Call light placed in reach of patient. Side rails up x 1. Bed placed in lowest position. Brakes of bed on. Patient ready for evaluation - --1932 Daniel Lewis R.N. ED physician at the patient's bedside (MD GUY & STUDENT FOR EVAL). --2045 Daniel Lewis R.N. At the patient's bedside (RESIDENT MD [facility] FOR CONSULT EVAL). --2099 Daniel Lewis R.N. IV / I&O Flowsheet Late entry - 15 : 15. IV site #1: location right hand. Started prior to arrival: 20g angiocath. Saline lock in place (BY LUCIA ESTRADA). --1932 Daniel Lewis R.N. DISPOSITION / DISCHARGE BP: 161 / 72. HR: 88. Patient reports pain level on departure as 2/10. Condition at departure: improved. Discontinued: IV site (IV catheter intact). Fall risk assessment completed. No fall risk identified. No learning barriers present. Discharge instructions reviewed with the patient. Patient verbalized understanding. Written instructions provided in Setswana. ( pt calling family to try and get a ride back to [place]). Patient has no belongings. --2136 Jacques Yousif R.N. The patient was discharged home and unaccompanied at time of discharge. The patient left the Emergency Department via taxi and with fare provided ( voucher approved by cristian zavaleta). Departure time: 22:19 Aug 23 2005. --2218 Irene Gong R.N., R.N. Locked/Released at08/25/2005 7:45 by Hilda Lam R.N. documented in this encounter Plan of Treatment Not on file documented as of this encounter Visit Diagnoses Not on filedocumented in this encounter
--- OUTSIDE RECORDS SUMMARY | 2024-03-30 18:33 | XMS_ITS | Encounter Summary ---
Author Organization [facility] Address [address] [place] [address] Care Team Providers Care Stem Cleaning Machine Feeder Name Role Phone Unavailable Primary Care Provider Unavailabl e Encounter Details Date Type Department Care Team (Late st Contact Info) Description 06/11/2005 14:29 [facility] Hospital Encounter [address] [address] Smith Smith MD [address] [place] [phone] Social History Tobacco Use Types Packs/Day Years [...]
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
--- OUTSIDE RECORDS SUMMARY | 2024-03-30 18:33 | XMS_ITS | Encounter Summary ---
Author Organization [facility] Address [address] [place] [address] Care Team Providers Care Tack Welder Name Role Phone Unavailable Primary Care Provider Unavailabl e Encounter Details Date Type Department Care Team (Latest Contact Info) Description 09/27/2005 9:22 EST - 09/27/2005 11:59 EST Hospital Encounter [address] [address] Smith Smith MD [address] [place] [phone] Discharge Disposition: Auto Discharge Social History [...] Diagnosis Comments FINGER 2 OR MORE VIEWS 09/27/2005 10:01 EST documented in this encounter Results * FINGER 2 OR MORE VIEWS (09/27/2005 10:01 EST) Anatomical Region Laterality Modality Other 09/27/2005 10:0 1 EST Narrative 01/29/2009 10:33 EDT LEFT 3RD DIP TRAUMATIC ARTHRITIS S/P FUSION DOS 07/24/05 ASSESS HEALING LEFT MIDDLE FINGER 09/27/05 Two views of the left middle finger are compared with the prior study of 08/30/05. ??A screw transfixes the distal phalanx with the middle phalanx. ??There has been further resorption of bone around the screw since the last exam. ??No bony bridging is seen. ??No other abnormality is seen. IMPRESSION: No evidence of bony bridging. ??Increased resorption of bone around the screw in the middle phalanx. D: ??09/27/05 T: ??09/28/05 /jose de jesus Procedure Note Willie Ruiz MD - 01/29/2009 LEFT 3RD DIP TRAUMATIC ARTHRITIS S/P FUSION DOS 07/24/05 ASSESS HEALING LEFT MIDDLE FINGER 09/27/05 Two views of the left middle finger are compared with the prior study of 08/30/05. A screw transfixes the distal phalanx with the middle phalanx. There has been further resorption of bone around the screw since the last exam. No bony bridging is seen. No other abnormality is seen. IMPRESSION: No evidence of bony bridging. Increased resorption of bone around the screw in the middle phalanx. /jv Smith Smith MD IMG DIAGNOSTIC IMAGI NG ORDERABLES documented in this encounter Visit Diagnoses Not on filedocumented in this encounter
--- OUTSIDE RECORDS SUMMARY | 2024-03-30 18:33 | XMS_ITS | Encounter Summary ---
Author Organization [facility] Address [address] [place] [address] Care Team Providers Care Windows Laptop Technician Name Role Phone Unavailable Primary Care Provider Unavailabl e Encounter Details Date Type Department Care Team (Latest Contact Info) Description 07/24/2005 5:53 EST - 07/24/2005 11:59 EST Hospital Encounter [facility] Perioperative Services- [facility] [address] [place] [address] Smith Smith MD [address] [place] [phone] Discharge Disposition: Home or Self Care [...] encounter OR Notes * OR Surgeon - Niko Saldana MD - 07/24/2005 0000 EST PROCEDURE REPORT PT TYPE: OPPROC PT LOC: [id number] SERVICE DATE: 07/24/2005 SURGEON: ULISSES Mi, Denia Duran MD AQUATIC FACILITY MANAGER: MD Les PREOPERATIVE DIAGNOSIS: 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 PROCEDURE: Left third distal interphalangeal joint arthrodesis. ANESTHESIA: Laurie block. INDICATIONS: Please see the [facility] chart. NARRATIVE: After proper identification and consent were obtained, the patient was brought back to the operating room and placed supine on the operating room table. A Hackberry block was then administered to the patientleft forearm per the Anesthesia staff, with a well padded tourniquet placed about his left upper arm. His left upper arm was subsequently prepped and draped in standard fashion. Attention was directed towards his left third DIP joint. There was a prior Yvonne type incision noted overthe dorsal aspect of his DIP joint. incision was recreated using a 15 blade scalpel and entry was gained into his DIP joint, through the extensor tendon. The joint was found to have significant degene rative changes. All remaining articular cartilage was sharply removed with the rongeur and a rasp. The proximal edge of the distal phalanx as well as the distal end of the middle phalanx were contoured to allow appropriate bony apposition. A single 0.062 K-wire then placed antegrade through the distal phalanx, centered on both AP and lateral views. This was then redirected retrograde through the middle phalanx. Exact placement in the middle of both phalanges was confirmed using the C-Arm image intensifier. The had exited distally through the skin, just volar to the nail tip. The K-wire was then removed and the hand powered reamer for the Acutrak screw was used to measure the appropriate depth and prepare the tunnel for the Acutrak screw. This was then placed from distal to proximal, spanning the DIP joint. Final images confirmed the screw to be in excellenposition across the DIP joint, in both AP and lateral images. There was excellent bony apposition. The wound was then copiously irrigated with sterile saline. The skin edges were reapproximated using 4-0 nylon suture. The patient was placed into a sterile dressing consisting of Betadine, Xeroform, 4 x 4s, and a volar splint. The tourniquet was let down, for a total tourniquet time of 58 minutes. The patient wassubsequently transferred back to his hospital bed in stable condition. Dr. Smith was present and scrubbed for the entirety of the case. IMPLANTS: A 27-mm Acutrak screw. Signed by Smith Smith MD 08/12/2005 13:59 Bella Mi, Denia Smith MD Dictated by: Niko Saldana MD Smith Smith MD - Niko Saldana MD A - priscila Job ID: [id number] Document ID: [id number] cc: MD Italo Pedraza MD documented in this encounter Plan of Treatment Not on file documented as of this encounter Procedures Procedure Name Priority Date/Time Associated Diagnosis Comments FINGER 2 OR MORE VIEWS 07/24/2005 9:20 EST GLUCOSE, GLUCOMETER Routine 07/24/2005 7 :13 EST documented in this encounter Results * FINGER 2 OR MORE VIEWS (07/24/2005 9:20 EST) Anatomical Region Laterality Modality Other 07/24/2005 9:20 EST Narrative 02/11/2009 1:00 EDT OA S/P ARTHRODESIS LEFT 3RD DIP CHECK HARDWARE LEFT 3RD FINGER 2 OR MORE VIEWS 07/24/05 HISTORY: OA, s/p arthrodesis left 3rd DIP. ??Check hardware. FINDINGS: Two intraoperative films of the reported left middle finger show a new screw through the distal phalange and the DIP with anatomic alignment. ??Some irregularity is at the tip of the distal phalange without significant change compared to 04/10/05. D: ??07/25/05 T: ??07/26/05 /jv I have personally reviewed the images and the above interpretation and agree with the findings. Procedure Note Florentin Coronado MD / Angela Way MD - 02/11/2009 OA S/P ARTHRODESIS LEFT 3RD DIP CHECK HARDWARE LEFT 3RD FINGER 2 OR MORE VIEWS 07/24/05 HISTORY: OA, s/p arthrodesis left 3rd DIP. Check hardware. FINDINGS: Two intraoperative films of the reported left middle finger show a new screw through the distal phalange and the DIP with anatomic alignment. Some irregularity is at the tip of the distal phalange without significant change compared to 04/10/05. /jose de jesus I have personally reviewed the images and the above interpretation and agree with the findings. Smith Smith MD IMG DIAGNOSTIC IMAGI NG ORDERABLES * GLUCOSE, GLUCOMETER (07/24/2005 7:13 EST) Glucose, Fingerstick 79 70 - 110 mg/dl [facility] [employer] Space Salesperson ID [id number] Test Performed by Nursing Services [facility] 07/24/2005 7:13 EST 07/25/2005 5:11 EST Smith Smith MD CHEMISTRY & BLOOD GA S ORDERABLES [facility] [address] [place] [address] documented in this encounter Visit Diagnoses Not on filedocumented in this encounter
--- OUTSIDE RECORDS SUMMARY | 2024-03-30 18:33 | XMS_ITS | Encounter Summary ---
Author Organization [facility] Address [address] [place] [address] Care Team Providers Care Senior Interaction Designer Name Role Phone Italo Tarango MD Primary Care Provider Encounter Details Date Type Department Care Team (Latest Contact Info) Description 03/05/2019 15:15 EDT - 03/05/2019 23:59 EDT Hospital Encounter [address] [address] Unknown, Provider, Discharge Disposition: Home or Self Care Social History Tobacco Use Types Packs/Day Years Used Date Smoking Tobacco: Never Assessed Sex and Gender Information Value Date Recorded Sex Assigned at Not on file Gender Identity Male 09/29/2019 9:10 EDT Sexual Orientation Not on file documented as of this encounter Discharge Disposition Disposition Code Departure Means Destination Home or Self Long-Term documented in this encounter Plan of Treatment Not on file documented as of this encounter Visit Diagnoses Not on filedocumented in this encounter Care Teams Senior Interaction Designer Relationship Specialty Start Date End Date Italo Tarango MD [address] [place] [phone] PCP - General 01/27/17 documented as of this encounter
--- OUTSIDE RECORDS SUMMARY | 2024-03-30 18:33 | XMS_ITS | Encounter Summary ---
Author Organization [facility] Address [address] [place] [address] Care Team Providers Care Bus Boy Name Role Phone Unavailable Primary Care Provider Unavailabl e Encounter Details Date Type Department Care Team (Late st Contact Info) Description 08/01/2005 8:41 EST - 08/01/2005 11:59 EST Hospital Encounter [facility] - [address] [address] Willie Ramírez PA-C [address] [facility] [address] [place] [address] Discharge Disposition: Auto Discharge Social History Tobacco [...]
--- OUTSIDE RECORDS SUMMARY | 2024-03-30 18:33 | XMS_ITS | Encounter Summary ---
Author Organization [facility] Address [address] [place] [address] Care Team Providers Care Agricultural Technician Name Role Phone Unavailable Primary Care Provider Unavailabl e Encounter Details Date Type Department Care Team (Late st Contact Info) Description 08/30/2005 11:00 [facility] Hospital Encounter [address] [address] Smith Smith MD [address] [place] [phone] Social History Tobacco Use Types Packs/Day [...]
--- OUTSIDE RECORDS SUMMARY | 2024-03-30 18:33 | XMS_ITS | Encounter Summary ---
Author Organization [facility] Address [address] [place] [address] Care Team Providers Care Compounding Technician Name Role Phone Unavailable Primary Care Provider Unavailabl e Encounter Details Date Type Department Care Team (Latest Contact Info) Description 08/01/2005 11:03 EST - 08/14/2005 11:59 EST Hospital Encounter [address] [address] Smith Smith MD [address] [place] [phone] Discharge Disposition: Auto Discharge Social History [...]
--- OUTSIDE RECORDS SUMMARY | 2024-03-30 18:33 | XMS_ITS | Encounter Summary ---
Author Organization [facility] Address [address] [place] [address] Care Team Providers Care Research Test Engine Operator Name Role Phone Unavailable Primary Care Provider Unavailabl e Encounter Details Date Type Department Care Team (Latest Contact Info) Description 08/23/2005 19:07 EST Hospital Encounter [facility] Emergency Department - [place] [address] [place], [place] [address] Smith Smith MD [address] [place] [phone] Discharge Disposition: Home or Self Care [...] or Self Care documented in this encounter Plan of Treatment Not on file documented as of this encounter Visit Diagnoses Not on filedocumented in this encounter
--- OUTSIDE RECORDS SUMMARY | 2024-03-30 18:33 | XMS_ITS | Encounter Summary ---
Author Organization [facility] Address [address] [place] [address] Care Team Providers Care Time Study Technician Name Role Phone Unavailable Primary Care Provider Unavailabl e Encounter Details Date Type Department Care Team (Late st Contact Info) Description 11/15/2005 13:06 EDT Hospital Encounter [address] [address] Smith Smith MD [address] [place] [phone] Social History Tobacco Use Types Packs/Day [...]
--- OUTSIDE RECORDS SUMMARY | 2024-03-30 18:33 | XMS_ITS | Encounter Summary ---
Author Organization [facility] Address [address] [place] [address] Care Team Providers Care Motocross Racer Name Role Phone Unavailable Primary Care Provider Unavailabl e Encounter Details Date Type Department Care Team (Latest Contact Info) Description 04/10/2005 13:10 EDT Hospital Encounter [address] [address] Tomás Simpson Discharge Disposition: Auto Discharge Social History Tobacco [...] Diagnosis Comments FINGER 2 OR MORE VIEWS 04/10/2005 14:18 EDT documented in this encounter Results * FINGER 2 OR MORE VIEWS (04/10/2005 14:18 EDT) Anatomical Region Laterality Modality Other 04/10/2005 14:1 8 EDT Narrative 01/29/2009 11:22 EDT LEFT LONG FINGER TIP AMPUTATION ASSESS HEALING FINGER TWO VIEWS 04/10/05, 1415 HOURS CLINICAL HISTORY: Left long finger tip amputation, assess healing. FINDINGS: Assessing the distal 3rd digit there are postoperative changes seen in the distal phalanx and medial phalanx. There are erosive changes of the middle phalanx as well. D 04/19/05 T 04/20/05 /magaly ??Addendum Begins ?? Addendum Ends I have personally reviewed the images and the above interpretation and agree with the findings. Procedure Note Andres Slaughter MD / Kareem Bowden MD - 01/29/2009 LEFT LONG FINGER TIP AMPUTATION ASSESS HEALING FINGER TWO VIEWS 04/10/05, 1415 HOURS CLINICAL HISTORY: Left long finger tip amputation, assess healing. FINDINGS: Assessing the distal 3rd digit there are postoperative changes seen in the distal phalanx and medial phalanx. There are erosive changes of the middle phalanx as well. D 04/19/05 T 04/20/05 /magaly Addendum Begins Addendum Ends I have personally reviewed the images and the above interpretation and agree with the findings. Tomás CURIEL DIAGNOSTIC IMAGI NG ORDERABLES documented in this encounter Visit Diagnoses Not on filedocumented in this encounter
--- OUTSIDE RECORDS SUMMARY | 2024-03-30 18:33 | XMS_ITS | Encounter Summary ---
Author Organization [facility] [place] [facility] Address [address] [place] [address] Care Team Providers Care Water Fabricator Operator Name Role Phone Italo Tarango MD Primary Care Provider [phone] Encounter Details Date Type Department Care Team (Late st Contact Info) Description 03/05/2019 Results Only [facility] [phone] Alisia Mane, [address] [place] [address] [place], [place] [id number] Social History Tobacco Use Types Packs/Day Years Used Date Smoking Tobacco: Never Assessed Sex and Gender Information Value Date Recorded Sex Assigned at Not on file Gender Identity Male 09/29/2019 9:10 EDT Sexual Orientation Not on file documented as of this encounter Plan of Treatment Not on file documented as of this encounter Procedures Procedure Name Priority Date/Time Associated Diagnosis Comments SURGICAL PATHOLOGY Routine 03/05/2019 17 :11 EDT documented in this encounter Results * SURGICAL PATHOLOGY (03/05/2019 17:11 EDT) Pathology Report: SURGICAL PATHOLOGY REPORT Reports generated via electronic interface contain original data; however they are lacking the format of the original report. Caution should be taken when reading/interpret ing unformatted reports. Name: ? RAVINDRA YOUNGER ? Accession #: ? [id number] ? : ? 1970 (Age: 48) ??M ? Collect Date: ? 03/05/2019 ? Location: ? [facility] ? Receive Date: ? 03/06/2019 ? Provider: ALISIA MANE DO Copy to: MIROSLAVA HERNANDEZ MD ? Final Pathologic Diagnosis: A. UVULA, LEFT BASE, [...] electronically signed by: Seb Gómez MD Report ??Date: 03/10/2019 15:47 By the signature above, the attending physician certifies that he/she has personally conducted a gross and/or microscopic examination of the described specimens and rendered or confirmed the above diagnosis. Specimen(s) Received: A. ??Lesion of uvula left base B. ??Left superior lesion of uvula C. ??Uvula right base D. ??Left superior tonsil Clinical History: Uvula and tonsil lesions; clinical diagnosis code: ??K13.70 Gross Description: A. ?Received in formalin labelled with proper patient identification (initials W, R) and left base lesion of uvula two martin-brown tissues (0.8 x 0.5 x 0.2 cm and 0.5 x 0.4 x 0.1 cm). Entirely submitted in A1. B. ?Received in formalin labelled with proper patient identification (initials W, R) and left superior lesion of uvula is a single martin tissue fragment (0.6 x 0.4 x 0.4 cm). The specimen is bisected and submitted entirely in B1. C. ?Received in formalin labelled with proper patient identification (initials W, R) and right base lesion of uvula is a single martin-brown tissue fragment (0.5 x 0.4 x 0.1 cm). Submitted intact in C1. D. ?Received in formalin labelled with proper patient identification (initials W, R) and left superior tonsil is single pink-martin tissue fragment (0.4 x 0.3 x 0.1 cm). Submitted intact in D1. JOHANNA Reed (ASCP) 03/06/2019 6:19 PM End of Report [facility] 03/05/2019 17:1 1 EDT 03/06/2019 17:11 EDT Alisia Mane DO PATHOLOGY ORDER MAITE Performing Organization Address City/State/[facility] Co de Phone Number [facility] [address] [place] [address] documented in this encounter Visit Diagnoses Not on filedocumented in this encounter Care Teams Water Fabricator Operator Relationship Specialty Start Date End Date Italo Tarango MD [address] [place] [phone] PCP - General 01/27/17 documented as of this encounter
--- OUTSIDE RECORDS SUMMARY | 2024-03-30 18:33 | XMS_ITS | Encounter Summary ---
Author Organization [facility] Address [address] [place] [address] Care Team Providers Care Volunteer Services Specialist Name Role Phone Unavailable Primary Care Provider Unavailabl e Encounter Details Date Type Department Care Team (Latest Contact Info) Description 08/30/2005 12:04 EST Hospital Encounter [address] [address] Smith Smith MD [address] [place] [phone] Discharge Disposition: Auto Discharge Social History [...] Diagnosis Comments FINGER 2 OR MORE VIEWS 08/30/2005 13:45 EST documented in this encounter Results * FINGER 2 OR MORE VIEWS (08/30/2005 13:45 EST) Anatomical Region Laterality Modality Other 08/30/2005 13:4 5 EST Narrative 02/11/2009 4:23 EDT S/P LEFT 3RD DIP JT FUSION, POST TRAUMATIC ARTHRITIS ASSESS FUSION DOS 07/24/05 LEFT FINGER: 30 AUGUST 2005 CLINICAL HISTORY: Status post third DIP joint fusion. ??Post-traumatic arthritis. Assess fusion. FINDINGS: AP and lateral views of the third finger concentrating on the distal interphalangeal joint shows internal fixation of the distal interphalangeal joint by metallic screw. ??There has been no bridging callus formation at the joint. ??On the other hand, what is actually noted is increased bony resorption at the joint with an increased gap between the middle phalanx and distal phalanx as well as increased lucency around the screw where it inserts at the middle phalanx. ??The screw position does not appear to have changed, however. IMPRESSIONS: Bony resorption evident around the distal interphalangeal joint. ??No callus formation. /tns Procedure Note Daquan Lynne, DO - 02/11/2009 S/P LEFT 3RD DIP JT FUSION, POST TRAUMATIC ARTHRITIS ASSESS FUSION DOS 07/24/05 LEFT FINGER: 30 AUGUST 2005 CLINICAL HISTORY: Status post third DIP joint fusion. Post-traumatic arthritis. Assess fusion. FINDINGS: AP and lateral views of the third finger concentrating on the distal interphalangeal joint shows internal fixation of the distal interphalangeal joint by metallic screw. There has been no bridging callus formation at the joint. On the other hand, what is actually noted is increased bony resorption at the joint with an increased gap between the middle phalanx and distal phalanx as well as increased lucency around the screw where it inserts at the middle phalanx. The screw position does not appear to have changed, however. IMPRESSIONS: Bony resorption evident around the distal interphalangeal joint. No callus formation. /tns Smith Smith MD IMG DIAGNOSTIC IMAGI NG ORDERABLES documented in this encounter Visit Diagnoses Not on filedocumented in this encounter
--- OUTSIDE RECORDS SUMMARY | 2024-03-30 18:33 | XMS_ITS | Encounter Summary ---
Author Organization [facility] Address [address] [place] [address] Care Team Providers Care Fabric And Accessories Estimator Name Role Phone Unavailable Primary Care Provider Unavailabl e Encounter Details Date Type Department Care Team (Late st Contact Info) Description 12/27/2005 14:05 EDT Hospital Encounter [address] [address] Smith Smith MD [address] [place] [phone] Social History Tobacco Use Types Packs/Day [...]
[2024-03-30] MEDS: Doxycycline Hyclate 100 MG, 2 CAPS/BTL PO (18:43)
--- NOTE | 2024-03-30 22:34 | ED.GENADUL_ITS ---
Discharge Plan Disposition Patient Disposition: Home Condition: Stable Discharge Details Clinical Impression: Pneumonia Primary Care Provider: Marry Nicholson ED Provider: Amberly Sparks Home Meds and New Rx's Prescriptions: New doxycycline hyclate 100 mg capsule 100 mg PO BID Qty: 20 0RF prednisone 20 mg tablet 40 mg PO DAILY Qty: 8 0RF Continued albuterol sulfate 2.5 mg /3 mL (0.083 %) solution for nebulization 2.5 mg inhalation QID PRN (Reason: shortness of breath or wheezing) Qty: 180 6RF Dulera 100-5 mcg/actuation HFA aerosol inhaler 2 puff inhalation BID Qty: 13 12RF albuterol sulfate [Ventolin HFA] 90 mcg/actuation HFA aerosol inhaler 2 puff inhalation QID PRN (Reason: shortness of breath or wheezing) 90 Days Qty: 8.5 6RF rizatriptan 10 mg tablet 10 mg PO ONCE Rx Instructions: may repeat once after at least 2 hours loratadine 10 mg Tablet 10 mg PO DAILY montelukast 10 mg tablet 10 mg PO DAILY Patient Comments: TAKE 1 TABLET BY MOUTH EVERY DAY ibuprofen 600 mg tablet 600 mg PO TID Qty: 30 0RF Discharge Instructions Instructions: Pneumonia, Adult (DC) Additional Instructions: Take antibiotics as prescribed Prednisone daily Albuterol 2 puffs every 4-6 hours return with pain, worsening shortness of breath, or if any new concerns arise see your pcp for recheck in 2-3 days Referrals: Marry Nicholson MD [Primary Care Provider] - Discharge Data Discharge Date/Time-TO BE ENTERED AT DEPARTURE: 03/30/24 21:47 HPI General Date/Time Provider Initiated Documentation: 03/30/24 17:10 . HPI Narrative: This 53-year-old male presents with report of cough and shortness of breath over the course of the past 5 days. Denies fever or chills. Partner sick with similar symptoms history of asthma per patient. Takes inhalers at home, has had difficulty controlling coughing over the course of the past several days described presents. Denies fever or chills. Related Data Home Medications ?Medication ?Instructions ?Recorded ?Confirmed loratadine 10 mg tablet 10 mg PO DAILY 05/03/18 03/30/24 montelukast 10 mg tablet 10 mg PO DAILY 01/21/21 03/30/24 rizatriptan 10 mg tablet 10 mg PO ONCE 04/25/21 03/30/24 ibuprofen 600 mg tablet 600 mg PO TID #30 tabs 01/17/22 03/30/24 albuterol sulfate 2.5 mg/3 mL 2.5 mg (3 mL) inhalation QID PRN 09/26/23 03/30/24 (0.083 %) solution for nebulization shortness of breath or wheezing #180 mL albuterol sulfate 90 mcg/actuation 2 puff inhalation QID PRN 12/27/23 03/30/24 aerosol inhaler (Ventolin HFA) shortness of breath or wheezing 90 days #8.5 grams mometasone-formoterol HFA 100 2 puff inhalation BID #13 grams 12/27/23 03/30/24 mcg-5 mcg/actuation aerosol inhaler (Dulera) doxycycline hyclate 100 mg capsule 100 mg PO BID #20 caps 03/30/24 prednisone 20 mg tablet 40 mg (2 x 20 mg) PO DAILY #8 tabs 03/30/24 Previous Rx's ?Medication ?Instructions ?Recorded ibuprofen 600 mg tablet 600 mg PO TID #30 tabs 01/17/22 albuterol sulfate 2.5 mg/3 mL 2.5 mg (3 mL) inhalation QID PRN 09/26/23 (0.083 %) solution for nebulization shortness of breath or wheezing #180 mL albuterol sulfate 90 mcg/actuation 2 puff inhalation QID PRN 12/27/23 aerosol inhaler (Ventolin HFA) shortness of breath or wheezing 90 days #8.5 grams mometasone-formoterol HFA 100 2 puff inhalation BID #13 grams 12/27/23 mcg-5 mcg/actuation aerosol inhaler (Dulera) doxycycline hyclate 100 mg capsule 100 mg PO BID #20 caps 03/30/24 prednisone 20 mg tablet 40 mg (2 x 20 mg) PO DAILY #8 tabs 03/30/24 Allergies Allergy/AdvReac Type Severity Reaction Status Date / Time allopurinol Allergy Intermediate Other (See Verified 03/30/24 17:10 Comment) seasonal Allergy Unknown Other (See Uncoded 03/30/24 17:10 Comment) General Stated Complaint: GenMedical JEREMI: 3 Exam Narrative Exam Narrative: Alert and oriented 53-year-old male no acute distress, rhonchi throughout, no obvious respiratory distress, cardiac rate rhythm regular, neurovascularly intact all 4 extremities, no peripheral edema, no calf swelling or tenderness Course Vital Signs Vital signs: Vital Signs Temperature 36.4 C 03/30/24 17:06 Pulse 100 H 03/30/24 17:06 Respiratory Rate 18 03/30/24 17:06 Blood Pressure 116/82 03/30/24 17:06 Pulse Oximetry 96 03/30/24 17:06 Temperature 36.4 C 03/30/24 17:06 Pulse 100 H 03/30/24 17:06 Respiratory Rate 18 03/30/24 18:31 Respiratory Effort Normal 03/30/24 17:12 Blood Pressure 116/82 03/30/24 17:06 Pulse Oximetry 96 03/30/24 17:06 Oxygen Delivery Method Room Air 03/30/24 17:06 Oxygen Flow Rate 0 03/30/24 17:06 Pain Level 0 03/30/24 17:06 Lab/Test Results Lab/Test Results: Laboratory Tests Range/Units 03/30/24 17:10 COVID-19 Source NASOPHARYNX SARS-CoV-2 (PCR) (Negative) Negative Influenza Type A (PCR) (Negative) Negative Influenza Type B (PCR) (Negative) Negative RSV (PCR) (Negative) Negative Medical Decision Making 51-year-old male in no acute distress, breathing has improved after DuoNeb, patient declines another. States he feels symptomatically improved, bronchospasm improved clinically. No hypoxia, ambulatory with steady gait, chest x-ray with possible right lower lobe developing infiltrate. Will initiate doxycycline for 7 days. Patient supplied with prednisone 40 mg for the next 3 to 5 days. Reassessment 24 to 48 hours recommended. Return precautions reviewed and patient expressed understanding does not endorse any chest pain today. 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) Quit 2014 Tobacco use (Acute) Nephrolithiasis (Chronic) Hearing loss (Acute) Lower back pain (Acute) Obstructive sleep apnea (adult) (pediatric) (Acute) REM AHI 35 Acute diffuse otitis externa of right ear (Acute) Sensorineural hearing loss (Acute) Otalgia of both ears (Acute) Lesion of uvula (Acute) Unspecified hearing loss, bilateral (Acute) Accidental insect sting (Acute) MRSA (methicillin resistant staph aureus) culture positive (Acute) Abscess (Acute) Obesity (Chronic) Gout (Chronic) Chronic rhinitis (Acute) Asthma (Chronic) Migraine (Chronic) Axillary abscess (Acute) Left knee pain (Acute) Internal derangement of left knee (Acute) S/P arthroscopy: 01/17/2022 Medical History (Updated 03/30/24 @ 18:24 by JOHANNA Mcmillan) Hx of migraine headaches Smoker quit Deviated nasal septum (06/22/13) 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: Yes
== END 2024-03-30 21:47 | disposition home or self-care (01) ==
LOC: ER 18:31
PROVIDERS: Emergency Medicine; Emergency Provider Physician Assistant; PCP Family Medicine
DX: J18.9 Pneumonia, unspecified organism (principal); Z87.891 Personal history of nicotine dependence
CPT/HCPCS: 87637; 94640; 99284; 71046; 99283; J1100; J7620

== ENCOUNTER 2024-04-29 11:51 | Emergency (ER) | payer MEDICARE, MEDICAID, SELFPAY ==
--- NOTE | 2024-04-29 11:45 | RT.EKG_ITS ---
APPROVED REPORT Exam: Resting ECG Reason for Exam: SOB Patient Location: E HR:106 bpm ECG Measurements Heart Rate 106 AXIS [place] 156 P 25 QRSd 99 QRS -24 QT 341 T 57 QTc 452 Conclusion Sinus tachycardia...rate> 99 Narrow complex sinus tachycardia rate of 106. Left axis deviation no signs of LVH. [place] and QTc withi n normal limits. No ST segment abnormalities. No T wave versions. No prior for comparison. No acu te injury pattern.
[2024-04-29 11:58] VITALS: PULSE 116; RESP 18; O2SAT 97
[2024-04-29 12:02] VITALS: BP 188/98; PULSE 106; RESP 16; TEMP 36.8; O2SAT 98
[2024-04-29 12:52] LABS: COVID-19 PCR Negative (Negative); Influenza A PCR Negative (Negative); Influenza B PCR Negative (Negative); RSV PCR Negative (Negative)
[2024-04-29 12:54] LABS: Source Nasopharynx
--- NOTE | 2024-04-29 13:59 | DI.RAD_ITS ---
Exam(s) XR CHEST 2V PA LATERAL EXAM: XR CHEST 2V PA LATERAL CLINICAL HISTORY: Shortness of breath. TECHNIQUE: 2D digital imaging was performed. COMPARISON: CR XR CHEST 2V PA LATERAL from 10/19/2019 FINDINGS: 2 views: Heart size is normal. The mediastinum is not widened. Right lung is clear. There is subsegmental platelike atelectasis in the lateral left lung base just above the hemidiaphragm. No pleural effusions. No fractures. No pneumothorax. IMPRESSION: There is subsegmental platelike atelectasis in the left lung base. No other pulmonary findings. DATA REPOSITORY: RADIATION DOSE DELIVERED:
[2024-04-29 14:10] VITALS: BP 151/88; PULSE 105; RESP 16; TEMP 37; O2SAT 96
--- NOTE | 2024-04-29 14:24 | ED.GENADUL_ITS ---
Discharge Plan Disposition Patient Disposition: Home Discharge Details Clinical Impression: Reactive airway disease with acute exacerbation Primary Care Provider: Marry Nicholson ED Provider: Enmanuel Bustos Home Meds and New Rx's Prescriptions: New benzonatate 100 mg capsule 100 mg PO BID PRNQty: 7 0RF cetirizine 10 mg tablet 10 mg PO DAILY PRNQty: 7 0RF doxycycline hyclate 100 mg capsule 100 mg PO BID Qty: 10 0RF prednisone 50 mg tablet 50 mg PO DAILY Qty: 4 0RF Rx Instructions: Please begin taking tomorrow as you have received steroids in the emergency department Proair Digihaler 90 mcg/actuation aero powdr breath act w/sensor 90 mcg inhalation Q6H PRNQty: 1 0RF Rx Instructions: Shortness of breath Continued albuterol sulfate 2.5 mg /3 mL (0.083 %) solution for nebulization 2.5 mg inhalation QID PRN (Reason: shortness of breath or wheezing) Qty: 180 6RF Dulera 100-5 mcg/actuation HFA aerosol inhaler 2 puff inhalation BID Qty: 13 12RF albuterol sulfate [Ventolin HFA] 90 mcg/actuation HFA aerosol inhaler 2 puff inhalation QID PRN (Reason: shortness of breath or wheezing) 90 Days Qty: 8.5 6RF cetirizine 10 mg tablet 10 mg PO DAILY PRN montelukast 10 mg tablet 10 mg PO DAILY Patient Comments: TAKE 1 TABLET BY MOUTH EVERY DAY ibuprofen 600 mg tablet 600 mg PO TID Qty: 30 0RF Discharge Instructions Instructions: Asthma in adults Additional Instructions: You were seen in the emergency department for your shortness of breath. Your x- ray showed no sign of pneumonia. You likely have an exacerbation of your reactive airway disease. Please take the steroids as directed. Please use this inhaler as well. Please follow-up with primary care provider next week. Please return to the emergency department if you develop worsening shortness of breath fevers chest pain or if you pass out. HPI General Date/Time Provider Initiated Documentation: 04/29/24 12:23 . HPI Narrative: MDM This is an overall very well-appearing mildly tachycardic but normothermic 53-year-old male with reactive airway disease now with acute exacerbation for which patient will receive steroids and doxycycline. No pain out of proportion to suggest necrotizing soft tissue infection. No chest pain to suggest ACS so did not obtain ECG. No black or bloody stools so my suspicion for acute blood loss anemia was low. No trauma to chest to suggest pneumothorax. Patient was mildly tachycardic and this did not improve in the emergency department. He did say that he had been using his inhaler more than normally recently and this certainly could be the cause of his tachycardia. No tongue swelling to suggest anaphylaxis so no indication for epinephrine. Patient denies routine tobacco. No recent use of dapsone so I am not suspicion for methemoglobinemia. I considered PE or other in the absence of chest pain and hypoxia I did not send a D-dimer. Patient is not been vomiting to suggest benefit from assessment of his electrolytes. 2:24 PM COVID influenza RSV negative. Chest x-ray showing subsegmental platelike atelectasis left lung base. No acute infiltrate. Patient had used multiple inhalers throughout the day today. This certainly could be the cause of his tachycardia. Will discharge home with course of steroids given wheeze and history of reactive airway disease. No unintentional weight gain lower extremity swelling or positional shortness of breath to suggest acute heart failure. Patient denied discussed that he should take the prescribed benzonatate steroids doxycycline and that he follow-up with the primary care provider. We discussed that he should return to the ED if he developed any weakness could not tolerate p.o. as result of nausea vomiting or if he developed chest pain. He understood his return indications and was discharged with empiric trial of expectant outpatient management. HPI This is a 53-year-old male with history of hearing loss prior to the emergency department via private vehicle in the setting of productive cough and shortness of breath. Patient has a history of hearing loss and I offered him a ux visual designer which he declined. He is on outpatient steroids and notes that he has been using his inhalers more often recently. He used 3 inhalers this morning and his symptoms did not improve so he came to the emergency department. He was seen approximately 1 month ago for similar symptoms and received a course of steroids. He said that this transiently improved his symptoms but subsequently it became worse. He saw his PCP yesterday was feeling well. Today he said that he feels like his asthma is exacerbated. He subjectively had a fever today. He denies chest pain although does his cough is productive. No recent falls. No recent travel. Denies routine tobacco ethanol or illicits. Exam General: Well-appearing in no acute distress speaking in complete sentences. Head: Normocephalic, atraumatic. Eye: Extraocular eye movements intact. No conjunctival injection. No scleral icterus. Ear, nose, mouth, throat: Grossly normal inspection. Normal voice, handling secretions normally. Neck: Trachea midline. Cardiovascular: Well-perfused distal extremities. Rapid regular rate Respiratory: Nonlabored respiration. Prolonged expiratory phase with end expiratory wheeze. No accessory muscle use. No tripoding. Gastrointestinal: Nondistended abdomen. Musculoskeletal: No edema. Moving all 4 extremities spontaneously. Skin: Normal for age and race, grossly normal temperature and turgor. No acute rash. Neurologic: Alert and appropriate, no apparent acute deficits. Psychiatric: Mood and manner are appropriate. Grooming and personal hygiene are appropriate. Related Data Home Medications ?Medication ?Instructions ?Recorded ?Confirmed montelukast 10 mg tablet 10 mg PO DAILY 01/21/21 04/29/24 ibuprofen 600 mg tablet 600 mg PO TID #30 tabs 01/17/22 04/29/24 albuterol sulfate 2.5 mg/3 mL 2.5 mg (3 mL) inhalation QID PRN 09/26/23 04/29/24 (0.083 %) solution for nebulization shortness of breath or wheezing #180 mL albuterol sulfate 90 mcg/actuation 2 puff inhalation QID PRN 12/27/23 04/29/24 aerosol inhaler (Ventolin HFA) shortness of breath or wheezing 90 days #8.5 grams mometasone-formoterol HFA 100 2 puff inhalation BID #13 grams 12/27/23 04/29/24 mcg-5 mcg/actuation aerosol inhaler (Dulera) cetirizine 10 mg tablet 10 mg PO DAILY PRN 04/27/24 04/29/24 albuterol sulfate 90 mcg/actuation 90 mcg inhalation Q6H PRN #1 ea 04/29/24 breath activated powder inhaler,sensor (Proair Digihaler) benzonatate 100 mg capsule 100 mg PO BID PRN #7 caps 04/29/24 cetirizine 10 mg tablet 10 mg PO DAILY PRN #7 tabs 04/29/24 doxycycline hyclate 100 mg capsule 100 mg PO BID #10 caps 04/29/24 prednisone 50 mg tablet 50 mg PO DAILY #4 tabs 04/29/24 Previous Rx's ?Medication ?Instructions ?Recorded ibuprofen 600 mg tablet 600 mg PO TID #30 tabs 01/17/22 albuterol sulfate 2.5 mg/3 mL 2.5 mg (3 mL) inhalation QID PRN 09/26/23 (0.083 %) solution for nebulization shortness of breath or wheezing #180 mL albuterol sulfate 90 mcg/actuation 2 puff inhalation QID PRN 12/27/23 aerosol inhaler (Ventolin HFA) shortness of breath or wheezing 90 days #8.5 grams mometasone-formoterol HFA 100 2 puff inhalation BID #13 grams 12/27/23 mcg-5 mcg/actuation aerosol inhaler (Dulera) albuterol sulfate 90 mcg/actuation 90 mcg inhalation Q6H PRN #1 ea 04/29/24 breath activated powder inhaler,sensor (Proair Digihaler) benzonatate 100 mg capsule 100 mg PO BID PRN #7 caps 04/29/24 cetirizine 10 mg tablet 10 mg PO DAILY PRN #7 tabs 04/29/24 doxycycline hyclate 100 mg capsule 100 mg PO BID #10 caps 04/29/24 prednisone 50 mg tablet 50 mg PO DAILY #4 tabs 04/29/24 Allergies Allergy/AdvReac Type Severity Reaction Status Date / Time allopurinol Allergy Intermediate Hives Unverified 04/29/24 13:43 seasonal Allergy Mild Other (See Uncoded 04/29/24 13:43 Comment) General Stated Complaint: RespSymp JEREMI: 4 Course Vital Signs Vital signs: Vital Signs Pulse 116 H 04/29/24 11:58 Respiratory Rate 18 04/29/24 11:58 Pulse Oximetry 97 04/29/24 11:58 Temperature 37.0 C 04/29/24 14:10 Temperature Source Tympanic 04/29/24 14:10 Pulse 105 H 04/29/24 14:10 Respiratory Rate 16 04/29/24 14:10 Respiratory Effort Short of Breath 04/29/24 12:02 Blood Pressure 151/88 H 04/29/24 14:10 Pulse Oximetry 96 04/29/24 14:10 Oxygen Delivery Method Room Air 04/29/24 14:10 Oxygen Flow Rate 0 04/29/24 14:10 Pain Level 0 04/29/24 12:02 Lab/Test Results Lab/Test Results: Laboratory Tests Range/Units 04/29/24 12:04 COVID-19 Source Nasopharynx SARS-CoV-2 (PCR) (Negative) Negative Influenza Type A (PCR) (Negative) Negative Influenza Type B (PCR) (Negative) Negative RSV (PCR) (Negative) Negative Medical Decision Making Quality:SDOH Health Related Social Needs: No Data to Display PFSH All Active Problems (Updated 04/27/24 @ 15:01 by Richa Thomason RN) Reactive airway disease with acute exacerbation (Acute) Pain of nose (Acute) Pneumonia (Acute) Dyspnea (Acute) Chewing tobacco nicotine dependence in remission (Acute) Quit 2014 Tobacco use (Acute) Nephrolithiasis (Chronic) Hearing loss (Acute) Lower back pain (Acute) Obstructive sleep apnea (adult) (pediatric) (Acute) REM AHI 35 Acute diffuse otitis externa of right ear (Acute) Sensorineural hearing loss (Acute) Otalgia of both ears (Acute) Lesion of uvula (Acute) Unspecified hearing loss, bilateral (Acute) Accidental insect sting (Acute) MRSA (methicillin resistant staph aureus) culture positive (Acute) Abscess (Acute) Obesity (Chronic) Gout (Chronic) Chronic rhinitis (Acute) Asthma (Chronic) Migraine (Chronic) Axillary abscess (Acute) Left knee pain (Acute) Internal derangement of left knee (Acute) S/P arthroscopy: 01/17/2022 Medical History (Updated 04/29/24 @ 14:27 by Enmanuel Bustos MD) Essential hypertension History of urinary stone Ex-smoker Diastolic dysfunction Hx of migraine headaches Smoker quit Deviated nasal septum (06/22/13) 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 Social History (Updated 10/24/22 @ 12:00 by Carmencita Monfette) Smoking/Tobacco Use Status: Former Tobacco Use tobacco type: cigarettes Quit Date: 07/20/16 Pack-years: 32 Smoking risk assessment performed?: Yes Alcohol Intake: never Drug use: Never Substance use type: does not use Housing: other Do you feel safe at home: Yes Do you feel safe in your relationship?: Yes
[2024-04-29] MEDS: predniSONE 20 MG TAB 60 MG PO (14:33)
[2024-04-29] MEDS: Doxycycline Hyclate 100 MG CAP PO (14:33)
[2024-04-29] MEDS: Benzonatate 100 MG CAP PO (14:34)
[2024-04-29 15:01] VITALS: BP 151/88; PULSE 102; RESP 16; TEMP 37; O2SAT 96
== END 2024-04-29 15:06 | disposition home or self-care (01) ==
PROVIDERS: Emergency Provider Emergency Medicine; PCP Family Medicine
DX: J45.901 Unspecified asthma with (acute) exacerbation (principal); Z79.899 Other long term (current) drug therapy
CPT/HCPCS: 87637; 93005; 99285; 71046; 93010; 99284; J7512

== ENCOUNTER → 2024-05-07 14:42 | Outpatient (BNVA) | payer MEDICARE, MEDICAID, SELFPAY | PROVIDERS: PCP Family Medicine; Referring Provider Family Medicine; Visit Provider Physician Assistant Surgical | DX: J45.909 Unspecified asthma, uncomplicated (principal) | CPT/HCPCS: 99214 ==

== ENCOUNTER → 2024-06-29 08:54 | Outpatient (BNVA) | payer MEDICARE, MEDICAID, SELFPAY | PROVIDERS: PCP Family Medicine; Referring Provider Family Medicine; Visit Provider Physician Assistant Surgical | DX: J45.909 Unspecified asthma, uncomplicated (principal) | CPT/HCPCS: 99214 ==

== ENCOUNTER 2024-10-28 10:03 | Outpatient (REF) | payer MEDICARE, MEDICAID, SELFPAY ==
[2024-10-28 15:36] LABS: HCT 47.4 % (40.0-50.0); HGB 15.9 g/dL (13.5-17.5); MCH 30.2 pg (27.0-33.0); MCHC 33.5 % (32.0-36.0); MCV 90 fL (80-95); MPV 9.4 fL (8.0-11.0); Platelet Count 351 10^3/uL (130-400); RBC 5.27 10^6/uL (4.36-5.78); RDW 13.5 % (11.8-14.1); RDW-SD 44.7 fL; WBC 8.75 10^3/uL (4.4-10.8)
[2024-10-28 15:56] LABS: ALT 50 U/L (16-63); AST 26 U/L (15-37); Albumin 4.4 g/dL (3.4-5.0); Alkaline Phosphatase 78 U/L (46-116); Anion Gap 6.7 mmol/L (3-11); BUN 16 mg/dL (7-18); Bilirubin, Total 1.1 mg/dL (0.2-1.0); CO2 30.3 mmol/L (21.0-32.0); Chloride 102 mmol/L (98-107); Glucose 83 mg/dL (74-106); Potassium 4.2 mmol/L (3.5-5.1); Sodium 139 mmol/L (136-145); TSH (W/Ref FT4) 0.93 uIU/mL (0.36-3.74); Total Protein 7.9 g/dL (6.4-8.2); Uric Acid 8.9 mg/dL (3.5-7.2)
== END 2024-10-28 10:04 | disposition home or self-care (01) ==
LOC: NCHCN 10:03
PROVIDERS: PCP Family Medicine; Visit Provider Family Medicine
DX: I10 Essential (primary) hypertension (principal); M10.9 Gout, unspecified
CPT/HCPCS: 80053; 85027; 84443; 84550

== ENCOUNTER → 2025-01-26 14:24 | Outpatient (BNVA) | payer MEDICARE, MEDICAID, SELFPAY | PROVIDERS: PCP Family Medicine; Referring Provider Family Medicine; Visit Provider Physician Assistant Surgical | DX: J45.909 Unspecified asthma, uncomplicated (principal); Z87.891 Personal history of nicotine dependence | CPT/HCPCS: 99214 ==

== ENCOUNTER → 2025-02-02 14:41 | Outpatient (BNVA) | payer MEDICARE, MEDICAID, SELFPAY | PROVIDERS: PCP Family Medicine; Referring Provider Family Medicine; Visit Provider Podiatrist | DX: M10.9 Gout, unspecified (principal); M79.671 Pain in right foot | CPT/HCPCS: 99214 ==

== ENCOUNTER 2025-04-23 01:37 | Outpatient (CLI) | payer MEDICARE, MEDICAID, SELFPAY ==
--- NOTE | 2025-05-05 12:55 | W.NUTRFU ---
Date of service: 04/23/25 Time of Service: 14:00 Nutrition Note NOTE: Ravindra in with [facility] and looking for help with wt mgt. discussed usual diet and initially would assess as low in fiber and needing plant protein to replace some meat protein to help decrease kcals and fat intake while still aiming for high protein diet - can use whey and collagen protein daily to help achieve ~40g from supps. reviewed guidance for 2100kcal diet with 157g protein goal and 210g total cho with limits on added sugar of 30g per day and goal of at least 30g fiber - reviewed sources and how to track. Poor dentition gets in the way of fiber intake - reviewed lentil and rojo soups, smoothies with frozn greens and fruit in them with the protein powder working to get at least 3 g fiber per serving for grain products. they have my contact info for reaching out with any questions. Time Spent in Nutritional Counseling and Treatment: 25min
== END 2025-04-23 01:38 | disposition home or self-care (01) ==
PROVIDERS: PCP Family Medicine; Visit Provider Dietitian, Registered
DX: Z71.3 Dietary counseling and surveillance (principal); E66.9 Obesity, unspecified
CPT/HCPCS: 00123; 97802

== ENCOUNTER 2025-05-07 13:06 | Outpatient (REF) | payer MEDICARE, MEDICAID, SELFPAY ==
[2025-05-07 21:09] LABS: Hemoglobin A1C 5.4 % (<5.7)
[2025-05-07 21:43] LABS: Folate 7.8 ng/mL (8.6-20.0); Vitamin B12 401 pg/mL (193-986)
== END 2025-05-07 13:07 | disposition home or self-care (01) ==
LOC: NCHCN 13:06
PROVIDERS: PCP Family Medicine; Visit Provider Family Medicine
DX: G62.9 Polyneuropathy, unspecified (principal)
CPT/HCPCS: 82607; 82746; 83036